=== PATIENT | male | born 2000 | race Caucasian/White ===

== ENCOUNTER 2019-12-31 21:39 | Inpatient (IN) | payer MEDICAID, SELFPAY ==
[2019-12-31 21:40] VITALS: BP 144/89; PULSE 91; RESP 18; TEMP 36.7; O2SAT 98; BMI 25.9
--- NOTE | 2019-12-31 21:44 | XR_ITS ---
WS: [id number] Left ankle, 3 views, 12/31/2019 Clinical Data: portable, sprained Comparison: None. Findings: No fractures or dislocations are seen. The ankle mortise is normal. The talus and calcaneus are unrem arkable. There is soft tissue swelling over the lateral malleolus. XR/XR ankle LT min 3V* [id number] Impression: 1. Soft tissue swelling over lateral malleolus. 2. Negative for fracture or dislocation.
--- NOTE | 2019-12-31 21:57 | W.ED.PSYCH ---
Documented by User: Madide Lewis MD 01/01/20 10:49 HPI - Psych General: Chief Complaint: Psychiatric Symptoms Stated Complaint: 96 hour hold, ankle inj Time Seen by Provider: 12/31/19 21:40 History of Present Illness: HPI Narrative: This patient is a 19-year-old male who presents with police today. He has been living at the [facility] for the past 2 weeks. He has a diagnosis of autism, ODD, posttraumatic stress disorder. He got upset tonight and made physical and verbal threats against the staff and the other residents. He then eloped from the home and the police were contacted. The police found him walking and the patient says he is trying to get back to [place]. The patient made statements to the police that if he saw anyone from [facility] he would kill them. He is very clear that he does not want to go back there. I talked to the staff member from [facility] and they are in agreement that it is not an appropriate place for him at this time. The patient was brought in by ambulance and his complaint to me is left ankle pain. He said it blew up while he was walking. Onset (ago): unknown Associated psychiatric symptoms: homicidal ideation Associated symptoms: Reports other (Aggressive behavior) Review of Systems General: Reports: ROS unobtainable due to mental status Physical Exam Narrative: EXAM NARRATIVE: Awake, alert, continuing to insist that he will get his way. Const: GENERAL APPEARANCE: disheveled Chest: COMMONS NORMALS: normal inspection of the chest Resp: COMMON NORMALS: normal respiratory effort and No use of accessory muscles Cardio: COMMON NORMALS: regular rate RATE: regular rate Extremity: GENERAL: Yes normal exam except as noted LEFT LOWER EXTREMITY: Yes ankle joint (Tenderness and swelling along the lateral malleolus, no tenderness of the fibular head) MDM - Psych Lab Data: Labs: Lab Results 12/31/19 12/31/19 12/31/19 Range/Units 22:04 22:04 22:22 WBC 8.9 (4.5-13.0) 10^3/ uL RBC 5.12 (4.1-5.3) 10^6/u L Hgb 14.7 (11.7-16.6) g/dL Hct 44.2 (42.0-52.0) % MCV 86.3 (80-94) fL MCH 28.7 (28.0-34.0) pg MCHC 33.3 (30.0-36.0) g/dL RDW 12.0 L (12.1-15.1) % Plt Count 220 (130-400) 10^3/c mm MPV 11.9 H (7.4-10.4) fL Neut % (Auto) 73.0 % Lymph % (Auto) 18.8 % [place] % (Auto) 7.0 % Eos % (Auto) 0.3 % Baso % (Auto) 0.3 % Neut # (Auto) 6.52 (1.8-8.0) 10^3/u L Lymph # (Auto) 1.7 (1.5-6.5) 10^3/u L [place] # (Auto) 0.6 (0.2-0.9) 10^3/u L Eos # (Auto) 0.0 (0.0-0.8) 10^3/u L Baso # (Auto) 0.0 (0.0-0.1) 10^3/u L Nucleated RBC % (a uto) 0 % Nucleated RBCs # 0.0 /100WBC Sodium (136-145) mmol/L Potassium (3.5-5.1) mmol/L Chloride (98-107) mmol/L Carbon Dioxide (22-29) mmol/L Anion Gap (5-19) BUN (6-20) mg/dL Creatinine (0.7-1.2) mg/dL GFR Calculation (90-130) mL/min Glucose (65-115) mg/dL Calculated Osmolal ity (285-295) mOsm/k g Calcium (8.5-10.5) mg/dL Total Bilirubin (0.15-1.2) mg/dL AST (0-40) U/L ALT (0-41) U/L Alkaline Phosphata se (40-130) IU/L Creatine Kinase (39-308) U/L Total Protein (6.6-8.7) g/dL Albumin (3.5-5.2) g/dL Globulin (1.3-4.6) g/dL TSH (0.27-4.20) uIU/ mL Free T4 (0.82-1.77) ng/d L Urine Color Yellow (Yellow) Urine Appearance Clear (CLEAR) Urine pH 5 (5-7) Ur Specific Gravit y 1.015 (1.005-1.030) Urine Protein Neg (Negative) Urine Glucose (UA) Norm (Normal) Urine Ketones Negative (Negative) Urine Blood Neg (Negative) Urine Nitrate Negative (Negative) Urine Bilirubin Neg (Negative) Urine Urobilinogen Norm (Negative) mg/dL Ur Leukocyte Cathy ase Negative (Negative) Salicylates (3-10) mg/dL Urine Opiates Scre en Negative (Negative) ng/mL Acetaminophen (10-30) ug/mL Ur Barbiturates Sc reen Negative (Negative) ng/mL Ur Phencyclidine S crn Negative (Negative) ng/mL Ur Amphetamines Sc reen Negative (Negative) ng/mL U Benzodiazepines Scrn Negative (Negative) ng/mL Urine Cocaine Scre en Negative (Negative) ng/mL U Marijuana (THC) Screen Negative (Negative) ng/mL Ethyl Alcohol (0-10) mg/dL SARS-CoV-2 Ag (Rap id) (Negative) 12/31/19 12/31/19 01/01/20 Range/Units 22:22 22:22 02:07 WBC (4.5-13.0) 10^3/ uL RBC (4.1-5.3) 10^6/u L Hgb (11.7-16.6) g/dL Hct (42.0-52.0) % MCV (80-94) fL MCH (28.0-34.0) pg MCHC (30.0-36.0) g/dL RDW (12.1-15.1) % Plt Count (130-400) 10^3/c mm MPV (7.4-10.4) fL Neut % (Auto) % Lymph % (Auto) % [place] % (Auto) % Eos % (Auto) % Baso % (Auto) % Neut # (Auto) (1.8-8.0) 10^3/u L Lymph # (Auto) (1.5-6.5) 10^3/u L [place] # (Auto) (0.2-0.9) 10^3/u L Eos # (Auto) (0.0-0.8) 10^3/u L Baso # (Auto) (0.0-0.1) 10^3/u L Nucleated RBC % (a uto) % Nucleated RBCs # /100WBC Sodium 140 (136-145) mmol/L Potassium 4.0 (3.5-5.1) mmol/L Chloride 103 (98-107) mmol/L Carbon Dioxide 25 (22-29) mmol/L Anion Gap 16.0 (5-19) BUN 14 (6-20) mg/dL Creatinine 0.9 (0.7-1.2) mg/dL GFR Calculation 107.6 (90-130) mL/min Glucose 107 (65-115) mg/dL Calculated Osmolal ity 291 (285-295) mOsm/k g Calcium 9.6 (8.5-10.5) mg/dL Total Bilirubin 0.3 (0.15-1.2) mg/dL AST 32 (0-40) U/L ALT 59 H (0-41) U/L Alkaline Phosphata se 90 (40-130) IU/L Creatine Kinase 241 (39-308) U/L Total Protein 7.7 (6.6-8.7) g/dL Albumin 5.0 (3.5-5.2) g/dL Globulin 2.7 (1.3-4.6) g/dL TSH 1.74 (0.27-4.20) uIU/ mL Free T4 1.35 (0.82-1.77) ng/d L Urine Color (Yellow) Urine Appearance (CLEAR) Urine pH (5-7) Ur Specific Gravit y (1.005-1.030) Urine Protein (Negative) Urine Glucose (UA) (Normal) Urine Ketones (Negative) Urine Blood (Negative) Urine Nitrate (Negative) Urine Bilirubin (Negative) Urine Urobilinogen (Negative) mg/dL Ur Leukocyte Cathy ase (Negative) Salicylates < 0.3 L (3-10) mg/dL Urine Opiates Scre en (Negative) ng/mL Acetaminophen < 5.0 L (10-30) ug/mL Ur Barbiturates Sc reen (Negative) ng/mL Ur Phencyclidine S crn (Negative) ng/mL Ur Amphetamines Sc reen (Negative) ng/mL U Benzodiazepines Scrn (Negative) ng/mL Urine Cocaine Scre en (Negative) ng/mL U Marijuana (THC) Screen (Negative) ng/mL Ethyl Alcohol < 10 (0-10) mg/dL SARS-CoV-2 Ag (Rap id) Negative (Negative) Discharge Plan Discharge Patient Disposition: Admitted As Inpatient Admit Provider: Jarod Martinez Clinical Impression: Homicidal ideation Condition: Stable Referrals: Nhung Martinez FNP [Primary Care Provider] - Coding Level of Care Code ED Forest Products Teacher for Chg Fwd Exam Detailed Documented by User: Darshana Ruby MD 01/01/20 05:38 HPI - Psych General: Chief Complaint: Psychiatric Symptoms Stated Complaint: 96 hour hold, ankle inj Time Seen by Provider: 12/31/19 21:40 MDM - Psych MDM Narrative: Medical decision making narrative: Patient presents here with homicidal ideations. Patient is medically cleared and was placed under 96-hour hold. I take patient over from Dr. Lewis and I spoke to Dr. Martinez and will admit here. Patient has been well acting here and stable. Lab Data: Labs: Lab Results 12/31/19 12/31/19 12/31/19 Range/Units 22:04 22:04 22:22 WBC 8.9 (4.5-13.0) 10^3/ uL RBC 5.12 (4.1-5.3) 10^6/u L Hgb 14.7 (11.7-16.6) g/dL Hct 44.2 (42.0-52.0) % MCV 86.3 (80-94) fL MCH 28.7 (28.0-34.0) pg MCHC 33.3 (30.0-36.0) g/dL RDW 12.0 L (12.1-15.1) % Plt Count 220 (130-400) 10^3/c mm MPV 11.9 H (7.4-10.4) fL Neut % (Auto) 73.0 % Lymph % (Auto) 18.8 % [place] % (Auto) 7.0 % Eos % (Auto) 0.3 % Baso % (Auto) 0.3 % Neut # (Auto) 6.52 (1.8-8.0) 10^3/u L Lymph # (Auto) 1.7 (1.5-6.5) 10^3/u L [place] # (Auto) 0.6 (0.2-0.9) 10^3/u L Eos # (Auto) 0.0 (0.0-0.8) 10^3/u L Baso # (Auto) 0.0 (0.0-0.1) 10^3/u L Nucleated RBC % (a uto) 0 % Nucleated RBCs # 0.0 /100WBC Sodium (136-145) mmol/L Potassium (3.5-5.1) mmol/L Chloride (98-107) mmol/L Carbon Dioxide (22-29) mmol/L Anion Gap (5-19) BUN (6-20) mg/dL Creatinine (0.7-1.2) mg/dL GFR Calculation (90-130) mL/min Glucose (65-115) mg/dL Calculated Osmolal ity (285-295) mOsm/k g Calcium (8.5-10.5) mg/dL Total Bilirubin (0.15-1.2) mg/dL AST (0-40) U/L ALT (0-41) U/L Alkaline Phosphata se (40-130) IU/L Creatine Kinase (39-308) U/L Total Protein (6.6-8.7) g/dL Albumin (3.5-5.2) g/dL Globulin (1.3-4.6) g/dL TSH (0.27-4.20) uIU/ mL Free T4 (0.82-1.77) ng/d L Urine Color Yellow (Yellow) Urine Appearance Clear (CLEAR) Urine pH 5 (5-7) Ur Specific Gravit y 1.015 (1.005-1.030) Urine Protein Neg (Negative) Urine Glucose (UA) Norm (Normal) Urine Ketones Negative (Negative) Urine Blood Neg (Negative) Urine Nitrate Negative (Negative) Urine Bilirubin Neg (Negative) Urine Urobilinogen Norm (Negative) mg/dL Ur Leukocyte Cathy ase Negative (Negative) Salicylates (3-10) mg/dL Urine Opiates Scre en Negative (Negative) ng/mL Acetaminophen (10-30) ug/mL Ur Barbiturates Sc reen Negative (Negative) ng/mL Ur Phencyclidine S crn Negative (Negative) ng/mL Ur Amphetamines Sc reen Negative (Negative) ng/mL U Benzodiazepines Scrn Negative (Negative) ng/mL Urine Cocaine Scre en Negative (Negative) ng/mL U Marijuana (THC) Screen Negative (Negative) ng/mL Ethyl Alcohol (0-10) mg/dL SARS-CoV-2 Ag (Rap id) (Negative) 12/31/19 12/31/19 01/01/20 Range/Units 22:22 22:22 02:07 WBC (4.5-13.0) 10^3/ uL RBC (4.1-5.3) 10^6/u L Hgb (11.7-16.6) g/dL Hct (42.0-52.0) % MCV (80-94) fL MCH (28.0-34.0) pg MCHC (30.0-36.0) g/dL RDW (12.1-15.1) % Plt Count (130-400) 10^3/c mm MPV (7.4-10.4) fL Neut % (Auto) % Lymph % (Auto) % [place] % (Auto) % Eos % (Auto) % Baso % (Auto) % Neut # (Auto) (1.8-8.0) 10^3/u L Lymph # (Auto) (1.5-6.5) 10^3/u L [place] # (Auto) (0.2-0.9) 10^3/u L Eos # (Auto) (0.0-0.8) 10^3/u L Baso # (Auto) (0.0-0.1) 10^3/u L Nucleated RBC % (a uto) % Nucleated RBCs # /100WBC Sodium 140 (136-145) mmol/L Potassium 4.0 (3.5-5.1) mmol/L Chloride 103 (98-107) mmol/L Carbon Dioxide 25 (22-29) mmol/L Anion Gap 16.0 (5-19) BUN 14 (6-20) mg/dL Creatinine 0.9 (0.7-1.2) mg/dL GFR Calculation 107.6 (90-130) mL/min Glucose 107 (65-115) mg/dL Calculated Osmolal ity 291 (285-295) mOsm/k g Calcium 9.6 (8.5-10.5) mg/dL Total Bilirubin 0.3 (0.15-1.2) mg/dL AST 32 (0-40) U/L ALT 59 H (0-41) U/L Alkaline Phosphata se 90 (40-130) IU/L Creatine Kinase 241 (39-308) U/L Total Protein 7.7 (6.6-8.7) g/dL Albumin 5.0 (3.5-5.2) g/dL Globulin 2.7 (1.3-4.6) g/dL TSH 1.74 (0.27-4.20) uIU/ mL Free T4 1.35 (0.82-1.77) ng/d L Urine Color (Yellow) Urine Appearance (CLEAR) Urine pH (5-7) Ur Specific Gravit y (1.005-1.030) Urine Protein (Negative) Urine Glucose (UA) (Normal) Urine Ketones (Negative) Urine Blood (Negative) Urine Nitrate (Negative) Urine Bilirubin (Negative) Urine Urobilinogen (Negative) mg/dL Ur Leukocyte Cathy ase (Negative) Salicylates < 0.3 L (3-10) mg/dL Urine Opiates Scre en (Negative) ng/mL Acetaminophen < 5.0 L (10-30) ug/mL Ur Barbiturates Sc reen (Negative) ng/mL Ur Phencyclidine S crn (Negative) ng/mL Ur Amphetamines Sc reen (Negative) ng/mL U Benzodiazepines Scrn (Negative) ng/mL Urine Cocaine Scre en (Negative) ng/mL U Marijuana (THC) Screen (Negative) ng/mL Ethyl Alcohol < 10 (0-10) mg/dL SARS-CoV-2 Ag (Rap id) Negative (Negative) EKG Data^: EKG 1: Attestation: I personally reviewed and interpreted this EKG as follows: EKG interpretation date: 01/01/20 EKG interpretation time: 02:10 Interpretation: nsr hr [address] or t wave abnormalities early repol noted qrs 99 qtc 385 Discharge Plan Discharge Patient Disposition: Admitted As Inpatient Admit Provider: Jarod Martinez Clinical Impression: Homicidal ideation Condition: Stable Referrals: Nhung Martinez FNP [Primary Care Provider] - Coding Level of Care Code ED Forest Products Teacher for Chg Fwd Exam Detailed
[2019-12-31 22:26] LABS: Basophils % 0.3 %; Eosinophils % 0.3 %; Hematocrit 44.2 % (42.0-52.0); Hemoglobin 14.7 g/dL (11.7-16.6); Lymphocytes # 1.7 10^3/uL (1.5-6.5); Lymphocytes % 18.8 %; Mean Corpuscular HGB Conc 33.3 g/dL (30.0-36.0); Mean Corpuscular Hemoglobin 28.7 pg (28.0-34.0); Mean Corpuscular Volume 86.3 fL (80-94); Mean Platelet Volume 11.9 fL (7.4-10.4); Monocytes # 0.6 10^3/uL (0.2-0.9); Neutrophils # 6.52 10^3/uL (1.8-8.0); Nucleated Red Blood Cells % 0 %; Platelet Count 220 10^3/cmm (130-400); Red Blood Count 5.12 10^6/uL (4.1-5.3); White Blood Count 8.9 10^3/uL (4.5-13.0)
[2019-12-31 22:32] LABS: Amphetamines Screen Urine Negative (Negative); Barbiturates Screen Urine Negative (Negative); Benzodiazepines Screen Urine Negative (Negative); Cocaine Screen Urine Negative (Negative); Opiate Screen Urine Negative (Negative); PCP Screen Urine Negative (Negative); THC Screen Urine Negative (Negative)
[2019-12-31 22:50] LABS: Alanine Aminotransferase 59 U/L (0-41); Alkaline Phosphatase 90 IU/L (40-130); Aspartate Amino Transferase 32 U/L (0-40); Blood Urea Nitrogen 14 mg/dL (6-20); Calcium 9.6 mg/dL (8.5-10.5); Carbon Dioxide 25 mmol/L (22-29); Chloride 103 mmol/L (98-107); Globulin 2.7 g/dL (1.3-4.6); Glomerular Filtration Rate 107.6 mL/min (90-130); Glucose 107 mg/dL (65-115); Osmolality Calculated 291 mOsm/kg (285-295); Sodium 140 mmol/L (136-145); Total Bilirubin 0.3 mg/dL (0.15-1.2); Total Protein 7.7 g/dL (6.6-8.7)
[2019-12-31 22:52] LABS: Acetaminophen < 5.0 ug/mL (10-30); Alcohol Level < 10 mg/dL (0-10); Salicylate < 0.3 mg/dL (3-10)
[2020-01-01] VITALS (12 sets, daily range): BP systolic 120–146; BP diastolic 81–97; PULSE 54–94; RESP 14–20; TEMP 36.3–36.7; O2SAT 95–100
--- NOTE | 2020-01-01 01:43 | ECG_ITS ---
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 Measurements Intervals Commerce Rate: 65 P: 42 OH: 196 QRS: 42 QRSD: 99 T: 15 QT: 374 QTc: 390 Interpretive Statements SINUS RHYTHM WITH SINUS ARRHYTHMIA ST ELEVATION, PROBABLY EARLY REPOLARIZATION [ST ELEVATION WITH NORMALLY INFLECTED T WAVE] No previous ECG available for comparison Electronically Signed On 01-01-2020 9:32:58 CDT by Dillan Castañeda M.D. [email or web address] Roomwalth[facility] hospitalPower Surge Electricjoint township [facility].[employer]/store/[id number]
[2020-01-01 02:50] LABS: SARS Covid-2 Antigen Negative (Negative)
--- NOTE | 2020-01-01 03:11 | PC.SOCIAL ---
Patient brought in by police and placed on a 96 hour hold. Spoke to his caregiver Ishmael ([phone]). Patient has only been at their [facility] home for 2 weeks. Prior to that he was at [facility] in [place]. He lives at a home with 2 other men, one is another consumer and his brother who has no services. He has a guardian, Nadia Samayoa [phone]. According to Ishmael and the affidavits he got upset and was threatening both staff and the room mates. He then eloped and was found walking by police. Ishmael said he does not know what the administrators at [facility] will want to do as far as allowing him back but he does not feel comfortable with him returning because he threatened other consumers. Contacts: Guardian Nadia Yao [phone] Wes Vanessa-Corral Boss at [facility] [phone] Em Rowe-Blueprint Processor at [facility] [phone] Caregiver Ihsmael [phone] Attempting to transfer from ED. So far the only facilities willing to consider are [facility] and [facility]. The [employer] computer system is on downtime so it will be 0530 before it can be referred and bed availability is known.
--- NOTE | 2020-01-01 04:35 | PC.SOCIAL ---
All [facility] units declined due to not having the staff for autism. [facility] waiting for UA, T4, TSH, and CK labs to be faxed to [phone]
[2020-01-01 04:37] LABS: Creatine Phosphokinase 241 U/L (39-308); Free T4 Free Thyroxine 1.35 ng/dL (0.82-1.77); Thyroid Stimulating Hormone 1.74 uIU/mL (0.27-4.20)
[2020-01-01 04:49] LABS: Add Urine Microscopic? NO
--- NOTE | 2020-01-01 04:55 | PM.NHP ---
Providers/Chief Complaint Admitting Physician: Jarod Martinez MD Primary Care Provider: JEET Avila Chief Complaint: 96 hour hold, ankle inj HPI NPU History of Present Illness Carlos Chan is a 19 year old male who presented to the emergency room with the following report: Chief Complaint: Psychiatric Symptoms Stated Complaint: 96 hour hold, ankle inj Time Seen by Provider: 12/31/19 21:40 History of Present Illness: HPI Narrative: This patient is a 19-year-old male who presents with police today. He has been living at the [facility] for the past 2 weeks. He has a diagnosis of autism, ODD, posttraumatic stress disorder. He got upset tonight and made physical and verbal threats against the staff and the other residents. He then eloped from the home and the police were contacted. The police found him walking and the patient says he is trying to get back to [place]. The patient made statements to the police that if he saw anyone from [facility] he would kill them. He is very clear that he does not want to go back there. I talked to the staff member from [facility] and they are in agreement that it is not an appropriate place for him at this time. The patient was brought in by ambulance and his complaint to me is left ankle pain. He said it blew up while he was walking. Onset (ago): unknown Associated psychiatric symptoms: homicidal ideation Associated symptoms: Reports other (Aggressive behavior). A second consult was requested for safety for discharge. Carlos presented to the evaluation reporting that he was upset with the staff and his new roommates. And that he left and was walking/today walking down the road and the police picked him up. 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 He reports that about 2 weeks ago he came to the [facility] as his new living arrangement. Without real clarity he expressed not liking it there and not wanting to go back there. He reports that he was open to the idea of going to the [facility] but that he was really upset about something that he could not really articulate. According to him he got in an argument and he may have thrown things are gotten aggressive. According to the staff member that was with him he threatened staff and his roommate and was physical but is not clear how much was observed and how much was being reported by roommates. At the time [facility] was saying they would not take him back at the very least for the night. Psychiatric history: He reports multiple inpatient hospitalizations. He reports that he takes medication but was unclear as to what they were. Substance abuse history: He denies cigarettes, alcohol, marijuana or any other illicit drug use. He is never been to rehab and never had a DUI. Family history: He reports he does not really know about his biological family. Developmental history: He is unsure about his and delivery. He believes that he was vague slow learning to walk about. He reports that he did have special education classes. Psychosocial history: He is fairly unclear of his history. Though he does report that he was taken away from his parents/biological parents. He is not sure why. He reports that he was adopted and that some of his adopted relatives live in [place] which is where he was planning on going to. He reports that his childhood has been tough. He did not report any motor physical use. He reports that he graduated from high school. He denies additional training, endorses that he is attracted to girls. He has never been , he has no children, has never been in the , and denied any specific tenriism belief system. He denies significant work history. He currently lives in [facility] with at least one roommate and might be to somewhat confusing. Legal history: Denied. Medical history: None reported. Meds NPU Home Medications Medication Instructions Recorded Confirmed Last Taken Type Fiber-Caps (psyllium husk) 625 mg PO DAILY 01/01/20 01/01/20 Unknown History benztropine 1 mg PO DAILY 01/01/20 01/01/20 Unknown History cetirizine 10 mg PO DAILY 01/01/20 01/01/20 Unknown History desmopressin 0.2 mg PO DAILY 01/01/20 01/01/20 Unknown History fluticasone furoate 50 mcg INHALATION DAILY PRN 01/01/20 01/01/20 Unknown History guanfacine 1 mg PO TID 01/01/20 01/01/20 Unknown History hydrocortisone 2.5 % TOPICAL BID PRN 01/01/20 01/02/20 Unknown History ibuprofen 400 mg PO TID PRN 01/01/20 01/01/20 Unknown History loratadine 10 mg PO DAILY 01/01/20 01/01/20 Unknown History methylphenidate 36 mg PO DAILY 01/01/20 01/01/20 Unknown History multivitamin 1 tab PO DAILY 01/01/20 01/01/20 Unknown History olanzapine 10 mg PO DAILY 01/01/20 01/01/20 Unknown History Allergies Allergy/AdvReac Type Severity Reaction Status Date / Time divalproex sodium Allergy ADR-Vomitin Verified 12/31/19 21:45 [From Depakote] g Mental Status Exam MSE Comments: This is a well-nourished well-developed white male with limited grooming and eye contact. With slightly dysmorphic. Cooperative with exam in mild distress. Speech was limited but normal rate and volume. With limited prosody. Mood described as all right, affect odd. Thought process linear. Thought content: Patient denied suicidal or homicidal ideations, there were no delusions reported or noted, he denied any auditory or visual hallucinations. Attention and concentration were limited and memory was unreliable at times, but none were formally tested. He is alert and oriented x3. Insight and judgment are impaired, intellectual ability is impaired, impulse control is impaired. Vitals/I&O/Wt Last Vital Signs Temp 97.3 F L 01/01/20 22:00 Pulse 54 L 01/01/20 22:00 Resp 16 01/01/20 22:00 BP 141/93 01/01/20 22:00 Pulse Ox 98 01/01/20 22:00 Weight last 48 hrs Weight 75.296 kg Data NPU : 12/31/19 22:22 12/31/19 22:22 A&P Assessment and plan (1) Homicidal ideation: Status: Acute (2) Adjustment disorder with mixed disturbance of emotions and conduct: Status: Acute (3) Intellectual disability: Status: Acute (4) Impulse control disorder: Status: Acute (5) Autism spectrum: Status: Acute Additional A&P Information This is a 19-year-old white male who recently moved to [facility] after years in a different facility with possibly a different facility in between moving to [facility] who presents with some issues of adjustment and reports of homicidality but significant intellectual disability. 1. Continue current medication. 2. Admit to neuropsychiatric unit for assessment for safety. 3. Identified with [facility] their obligation to accept patient back for definitive housing arrangements if they are going to identify him as failure to adjust. Involuntary Hold Information 96 Hour Hold: 96 Hour Involuntary Admission: Yes 96 Hour Hold Ending Date: 01/06/20 96 Hour Hold Ending Time: 21:54 Attestations NPU Medical Necessity Statement*: Inpatient hospitalization is medically appropriate for safety and the clinically appropriate intervention at this time. We will evaluate medications and make changes if indicated. Likely length of stay 1 to 3 days. Coding Level of Care Code Acute [facility] for [facility] Fwd Diagnoses Homicidal ideation R45.850 Adjustment disorder with mixed disturbance of emotions and conduct F43.25 Intellectual disability F79 Impulse control disorder F63.9 Autism spectrum F84.0
[2020-01-01 05:07] LABS: Bilirubin Urine Neg (Negative); Blood Urine Neg (Negative); Glucose Urine UA Norm (Normal); Ketones Urine Negative (Negative); Leukocyte Esterase Urine Negative (Negative); Nitrate Urine Negative (Negative); Protein Urine Neg (Negative); Specific Gravity, Urine 1.015 (1.005-1.030); Urine Appearance Clear (CLEAR); Urine Color Yellow (Yellow); Urobilinogen Urine Norm (Negative); pH Urine 5 (5-7)
--- NOTE | 2020-01-01 05:29 | PC.SOCIAL ---
Dianna with [facility] faxed all requested labs. She is to call their doctor and will call the ED back.
--- NOTE | 2020-01-01 07:25 | PC.NURSE ---
pt's presales engineer from [facility] (Callie) contacted ER this morning and was updated on pt's plan of care.
--- NOTE | 2020-01-01 09:27 | PC.NURSE ---
pt woke up today and given breakfast. pt updated on plan of care. pt has no needs at this time
--- NOTE | 2020-01-01 09:47 | PC.SOCIAL ---
Called Mihaela Stearns they are suppose to get back with me.
[2020-01-02 06:00] VITALS: BP 141/93; PULSE 54; RESP 16; TEMP 36.3; O2SAT 98
[2020-01-02 06:15] VITALS: BP 131/86; PULSE 68; RESP 15; TEMP 36.7; O2SAT 95
[2020-01-02] MEDS: guanfacine 1 mg Tablet PO ×2 (08:20→14:46)
[2020-01-02] MEDS: benztropine 1 mg Tablet PO (08:20)
[2020-01-02] MEDS: OLANZapine 10 mg TABLET PO (08:20)
[2020-01-02] MEDS: multivitamin therapeutic Tablet 1 TAB PO (08:20)
[2020-01-02] MEDS: cetirizine 10 mg Tablet PO (08:20)
[2020-01-02] MEDS: loratadine 10 mg Tablet PO (08:20)
--- NOTE | 2020-01-02 11:30 | PM.NDC ---
Diagnoses at Discharge Discharge Diagnosis (1) Homicidal ideation: Status: Acute (2) Adjustment disorder with mixed disturbance of emotions and conduct: Status: Acute (3) Intellectual disability: Status: Acute (4) Impulse control disorder: Status: Acute (5) Autism spectrum: Status: Acute Reason for Visit Reason for Visit: 96 hour hold, ankle inj Brief History: History of Present Illness Carlos Chan is a 19 year old male who presented to the emergency room with the following report: Chief Complaint: Psychiatric Symptoms Stated Complaint: 96 hour hold, ankle inj Time Seen by Provider: 12/31/19 21:40 History of Present Illness: HPI Narrative: This patient is a 19-year-old male who presents with police today. He has been living at the [facility] for the past 2 weeks. He has a diagnosis of autism, ODD, posttraumatic stress disorder. He got upset tonight and made physical and verbal threats against the staff and the other residents. He then eloped from the home and the police were contacted. The police found him walking and the patient says he is trying to get back to [place]. The patient made statements to the police that if he saw anyone from [facility] he would kill them. He is very clear that he does not want to go back there. I talked to the staff member from [facility] and they are in agreement that it is not an appropriate place for him at this time. The patient was brought in by ambulance and his complaint to me is left ankle pain. He said it blew up while he was walking. Onset (ago): unknown Associated psychiatric symptoms: homicidal ideation Associated symptoms: Reports other (Aggressive behavior). A second consult was requested for safety for discharge. Carlos presented to the evaluation reporting that he was upset with the staff and his new roommates. And that he left and was walking/today walking down the road and the police picked him up. 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 He reports that about 2 weeks ago he came to the [facility] as his new living arrangement. Without real clarity he expressed not liking it there and not wanting to go back there. He reports that he was open to the idea of going to the [facility] but that he was really upset about something that he could not really articulate. According to him he got in an argument and he may have thrown things are gotten aggressive. According to the staff member that was with him he threatened staff and his roommate and was physical but is not clear how much was observed and how much was being reported by roommates. At the time Trevin was saying they would not take him back at the very least for the night. Psychiatric history: He reports multiple inpatient hospitalizations. He reports that he takes medication but was unclear as to what they were. Substance abuse history: He denies cigarettes, alcohol, marijuana or any other illicit drug use. He is never been to rehab and never had a DUI. Family history: He reports he does not really know about his biological family. Developmental history: He is unsure about his and delivery. He believes that he was vague slow learning to walk about. He reports that he did have special education classes. Psychosocial history: He is fairly unclear of his history. Though he does report that he was taken away from his parents/biological parents. He is not sure why. He reports that he was adopted and that some of his adopted relatives live in [place] which is where he was planning on going to. He reports that his childhood has been tough. He did not report any motor physical use. He reports that he graduated from high school. He denies additional training, endorses that he is attracted to girls. He has never been , he has no children, has never been in the , and denied any specific adventism belief system. He denies significant work history. He currently lives in [facility] house with at least one roommate and might be to somewhat confusing. Legal history: Denied. Medical history: None reported. Involuntary Hold Information 96 Hour Hold: 96 Hour Involuntary Admission: Yes 96 Hour Hold Ending Date: 01/06/20 96 Hour Hold Ending Time: 21:54 Mental Status Exam MSE Comments: This is a well-nourished well-developed white male with limited grooming and eye contact. With slightly dysmorphic facies. Cooperative with exam in no acute distress. Speech was limited but normal rate and volume. With limited prosody. Mood described as good, affect odd. Thought process linear. Thought content: Patient denied suicidal or homicidal ideations, there were no delusions reported or noted, he denied any auditory or visual hallucinations. Attention and concentration were fair and memory was mostly reliable, but none were formally tested. He is alert and oriented x3. Insight and judgment are improving, intellectual ability is impaired, impulse control is impaired, but improving. Discharge Data Data Completed and Pending: Completed Studies During Hospitalization Category Date Time Status XR ankle LT min 3 V* [id number] Stat Exams 12/31/19 21:44 Completed Vitals: Last Vital Signs Temp 97.5 F L 01/02/20 14:00 Pulse 61 01/02/20 14:00 Resp 18 01/02/20 14:00 BP 123/79 01/02/20 14:00 Pulse Ox 96 01/02/20 14:00 Discharge Plan Discharge Patient Disposition: Home Condition: Stable Prescriptions: Continued multivitamin Tablet 1 tab PO DAILY RF: 0 desmopressin 0.2 mg Tablet 0.2 mg PO DAILY RF: 0 olanzapine 10 mg Tablet 10 mg PO DAILY RF: 0 ibuprofen 400 mg Tablet 400 mg PO TID PRN (Reason: Fever Or Pain) RF: 0 guanfacine 1 mg Tablet 1 mg PO TID RF: 0 loratadine 10 mg Tablet 10 mg PO DAILY RF: 0 fluticasone furoate 50 mcg/actuation Blister With Device 50 mcg INHALATION DAILY PRN (Reason: Allergic Symptoms) RF: 0 Fiber-Caps (psyllium husk) 625 mg PO DAILY RF: 0 benztropine 1 mg PO DAILY RF: 0 cetirizine 10 mg PO DAILY RF: 0 hydrocortisone cream 2.5 % topical BID PRN (Reason: Allergic Symptoms) RF: 0 methylphenidate 36 mg PO DAILY RF: 0 Discharge Orders: Discharge Order (Routine); Ordered 01/02/20 Ordered By: Jarod Martinez Referrals: [facility] [Outside] - 1-3 days (As soon as it is possible, contact [facility] about getting appointment scheduled for follow-up. Guardian is aware of the need for her signature to process referral. ) Nhung Martinez FNP [Primary Care Provider] - Discharge Diet: Regular Discharge Activity: Resume usual activity Discharge Date/Time: 01/02/20 16:23 Discharge Attestations NPU Time Spent in Discharge Care*: less than 30 min Specific Discharge Activities: Specific discharge activities: educating patient, discussing with comp field case manager/social workers/dc planners, documenting/other paperwork and evaluating patient/reviewing data Coding Level of Care Code Acute Pollution Control Technician for Chg Fwd Diagnoses Homicidal ideation R45.850 Adjustment disorder with mixed disturbance of emotions and conduct F43.25 Intellectual disability F79 Impulse control disorder F63.9 Autism spectrum F84.0
[2020-01-02 11:35] VITALS: BP 131/86; PULSE 68; RESP 15; TEMP 36.7; O2SAT 95
[2020-01-02 14:00] VITALS: BP 123/79; PULSE 61; RESP 18; TEMP 36.4; O2SAT 96
== END 2020-01-02 16:23 | disposition home or self-care (01) | DRG 882 ==
LOC: ER 01-01 05:35 → NP 01-01 06:01
PROVIDERS: Admitting Provider Psychiatry & Neurology Psychiatry; Emergency Provider Emergency Medicine; PCP Nurse Practitioner Family; Visit Provider Psychiatry & Neurology Psychiatry
DX: F43.25 Adjustment disorder with mixed disturbance of emotions and conduct (principal); F79 Unspecified intellectual disabilities; F84.0 Autistic disorder; F63.9 Impulse disorder, unspecified; R45.850 Homicidal ideations
CPT/HCPCS: 12345; 73610; 80053; 80306; 80307; 81003; 82550; 84439; 84443; 85025; 87426; 93005; 99284

== ENCOUNTER 2020-02-01 22:30 | Inpatient (IN) | payer MEDICAID, SELFPAY ==
[2020-02-01 22:38] VITALS: BP 137/100; PULSE 93; RESP 18; TEMP 36.7; O2SAT 98; BMI 25.8
[2020-02-01 22:55] LABS: Basophils % 0.2 %; Eosinophils % 0.1 %; Hemoglobin 14.9 g/dL (11.7-16.6); Lymphocytes # 1.4 10^3/uL (1.5-6.5); Lymphocytes % 13.1 %; Mean Corpuscular HGB Conc 32.4 g/dL (30.0-36.0); Mean Corpuscular Hemoglobin 28.6 pg (28.0-34.0); Mean Corpuscular Volume 88.3 fL (80-94); Monocytes # 0.6 10^3/uL (0.2-0.9); Monocytes % 5.4 %; Neutrophils # 8.64 10^3/uL (1.8-8.0); Nucleated Red Blood Cells % 0 %; Platelet Count 235 10^3/cmm (130-400); Red Blood Count 5.21 10^6/uL (4.1-5.3); Red Cell Distribution Width 12.5 % (12.1-15.1); White Blood Count 10.7 10^3/uL (4.5-13.0)
[2020-02-01 22:59] LABS: Add Urine Microscopic? NO
[2020-02-01 23:02] LABS: Bilirubin Urine Neg (Negative); Blood Urine Neg (Negative); Glucose Urine UA Norm (Normal); Ketones Urine Negative (Negative); Leukocyte Esterase Urine Negative (Negative); Nitrate Urine Negative (Negative); Protein Urine Neg (Negative); Specific Gravity, Urine 1.025 (1.005-1.030); Urine Appearance Clear (CLEAR); Urine Color Yellow (Yellow); Urobilinogen Urine Norm (Negative); pH Urine 6 (5-7)
[2020-02-01 23:11] LABS: Alanine Aminotransferase 32 U/L (0-41); Albumin Level 5.1 g/dL (3.5-5.2); Alkaline Phosphatase 101 IU/L (40-130); Anion Gap 13.9 (5-19); Aspartate Amino Transferase 34 U/L (0-40); Blood Urea Nitrogen 16 mg/dL (6-20); Calcium 9.9 mg/dL (8.5-10.5); Carbon Dioxide 30 mmol/L (22-29); Chloride 104 mmol/L (98-107); Globulin 2.7 g/dL (1.3-4.6); Glomerular Filtration Rate 85.3 mL/min (90-130); Glucose 91 mg/dL (65-115); Osmolality Calculated 299 mOsm/kg (285-295); Potassium 3.9 mmol/L (3.5-5.1); Sodium 144 mmol/L (136-145); Total Bilirubin 0.4 mg/dL (0.15-1.2); Total Protein 7.8 g/dL (6.6-8.7)
[2020-02-01 23:12] LABS: Amphetamines Screen Urine Negative (Negative); Barbiturates Screen Urine Negative (Negative); Benzodiazepines Screen Urine Negative (Negative); Cocaine Screen Urine Negative (Negative); Opiate Screen Urine Negative (Negative); PCP Screen Urine Negative (Negative); THC Screen Urine Negative (Negative)
[2020-02-01 23:26] LABS: Acetaminophen < 5.0 ug/mL (10-30); Alcohol Level < 10 mg/dL (0-10); Salicylate < 0.3 mg/dL (3-10)
[2020-02-02 00:10] VITALS: BP 136/93; PULSE 103; RESP 18; O2SAT 97
--- NOTE | 2020-02-02 00:11 | PC.NURSE ---
Called report to LORNA Frank in NPU
[2020-02-02 00:17] VITALS: BP 136/92; PULSE 115; RESP 18; TEMP 36.6; O2SAT 98
[2020-02-02] MEDS: OLANZapine 5 mg ODT PO (01:30)
[2020-02-02] MEDS: hyDROXYzine 25 mg Capsule 50 MG PO ×2 (01:30→21:04)
[2020-02-02] MEDS: trazodone 50 mg Tablet PO ×2 (01:30→21:04)
--- NOTE | 2020-02-02 01:56 | ED_ITS ---
HPI - Psych General: Chief Complaint: Psychiatric Symptoms Stated Complaint: HI Time Seen by Provider: 02/01/20 22:41 History of Present Illness: HPI Narrative: 19-year-old male who presents after having made homicidal threatening statements to his roommate and staff in the correction setting. Affidavits were written by staff member and police, who witnessed some of these statements as well. He has not been ill recently he says. He had a prior episode of this a month or so ago. The staff is worried about safety of the other tenants. MD complaint: other Onset (ago): hour(s) Duration: constant History of same: Yes Relieving factors: none Exacerbating factors: none Associated psychiatric symptoms: depression and homicidal ideation Associated symptoms: Reports homicidal ideation Review of Systems Const: Denies: fever(s) or chills ENMT: Denies: odynophagia or sinus pain Card: Denies: chest pain, palpitations or irregular heart rhythm Resp: Denies: dyspnea, productive cough, non-productive cough or wheezing GI: Denies: abdominal pain, nausea or vomiting : Denies: difficulty urinating or hematuria Musc: Denies: neck pain or back pain Skin/Breast: Denies: rash Neuro: Denies: headache(s), dizziness or vertigo Psych: Reports: homicidal ideation PFSH ED PFSH: Social History Current gender identity: Male Physical Exam Const: GENERAL APPEARANCE: well developed ORIENTATION/CONSCIOUSNESS: Yes oriented to person, Yes oriented to place and Yes oriented to time HENMT: COMMON NORMALS: normocephalic, external ears normal and Normal external nose present HEAD & SCALP: normocephalic; no scalp tenderness FACE & SINUS: normal facial exam NOSE: Normal external nose present and No nasal discharge present EXTERNAL EAR: Yes external ears normal THROAT: posterior oropharynx normal; no peritonsillar mass Eye: COMMON NORMALS: Equal, round and reactive pupils present, EOMs intact bilaterally and conjunctivae normal EYELID: eyelids normal CONJUNCTIVA: Yes conjunctivae normal PUPIL: Yes Equal, round and reactive pupils present Neck/C-Spine: GENERAL: No tracheal deviation Chest: COMMONS NORMALS: normal inspection of the chest CHEST: No tenderness Resp: COMMON NORMALS: clear to auscultation bilaterally EFFORT & INSPECTION: No tachypneic, No respiratory distress, No retractions, No uses accessory muscles and No tracheal deviation AUSCULTATION: clear to auscultation bilaterally, no rhonchi, no wheezes and lung sounds not diminished Cardio: COMMON NORMALS: regular rate and regular rhythm RATE: regular rate RHYTHM: regular rhythm HEART SOUNDS: no murmurs PERIPHERAL PULSES: radial pulses present GI: INSPECTION: No abdominal distension AUSCULTATION: No Hyperactive bowel sounds present and No Hypoactive bowel sounds present PALPATION: No Guarding due to palpation present (GI) and No Rigid due to palpation PERCUSSION: no dullness to percussion and no tympanic to percussion Neuro: SENSORIUM/ORIENTATION: Yes oriented to person, Yes oriented to place and Yes oriented to time Psych: APPEARANCE: Yes grossly normal ACTIVITY/MOTOR BEHAVIOR: Yes appropriate eye contact SPEECH: Yes excessive MOOD & AFFECT: Yes expansive affect THOUGHT PROCESS: disorganized THOUGHT CONTENT: Yes Homicidality present ATTENTION/CONCENTRATION: Yes attention grossly intact and Yes concentration grossly intact INSIGHT: Limited insight present (Psych) JUDGEMENT: Limited judgement present (Psych) Skin: COMMON NORMALS: no rashes or lesions noted GENERAL SKIN EXAM: no rashes or lesions noted MDM - Psych MDM Narrative: Medical decision making narrative: Labs are stable. He is medically cleared. Psychiatry consulted from the ER, and agrees to admit. Lab Data: Labs: Lab Results 02/01/20 02/01/20 02/01/20 Range/Units 22:45 22:45 22:54 WBC 10.7 (4.5-13.0) 10^3/ uL RBC 5.21 (4.1-5.3) 10^6/u L Hgb 14.9 (11.7-16.6) g/dL Hct 46.0 (42.0-52.0) % MCV 88.3 (80-94) fL MCH 28.6 (28.0-34.0) pg MCHC 32.4 (30.0-36.0) g/dL RDW 12.5 (12.1-15.1) % Plt Count 235 (130-400) 10^3/c mm MPV 12.0 H (7.4-10.4) fL Neut % (Auto) 81.0 % Lymph % (Auto) 13.1 % Calloway % (Auto) 5.4 % Eos % (Auto) 0.1 % Baso % (Auto) 0.2 % Neut # (Auto) 8.64 H (1.8-8.0) 10^3/u L Lymph # (Auto) 1.4 L (1.5-6.5) 10^3/u L Calloway # (Auto) 0.6 (0.2-0.9) 10^3/u L Eos # (Auto) 0.0 (0.0-0.8) 10^3/u L Baso # (Auto) 0.0 (0.0-0.1) 10^3/u L Nucleated RBC % (a uto) 0 % Nucleated RBCs # 0.0 /100WBC Sodium 144 (136-145) mmol/L Potassium 3.9 (3.5-5.1) mmol/L Chloride 104 (98-107) mmol/L Carbon Dioxide 30 H (22-29) mmol/L Anion Gap 13.9 (5-19) BUN 16 (6-20) mg/dL Creatinine 1.1 (0.7-1.2) mg/dL GFR Calculation 85.3 L (90-130) mL/min Glucose 91 (65-115) mg/dL Calculated Osmolal ity 299 H (285-295) mOsm/k g Calcium 9.9 (8.5-10.5) mg/dL Total Bilirubin 0.4 (0.15-1.2) mg/dL AST 34 (0-40) U/L ALT 32 (0-41) U/L Alkaline Phosphata se 101 (40-130) IU/L Total Protein 7.8 (6.6-8.7) g/dL Albumin 5.1 (3.5-5.2) g/dL Globulin 2.7 (1.3-4.6) g/dL Urine Color Yellow (Yellow) Urine Appearance Clear (CLEAR) Urine pH 6 (5-7) Ur Specific Gravit y 1.025 (1.005-1.030) Urine Protein Neg (Negative) Urine Glucose (UA) Norm (Normal) Urine Ketones Negative (Negative) Urine Blood Neg (Negative) Urine Nitrate Negative (Negative) Urine Bilirubin Neg (Negative) Urine Urobilinogen Norm (Negative) mg/dL Ur Leukocyte Cathy ase Negative (Negative) Salicylates < 0.3 L (3-10) mg/dL Urine Opiates Scre en (Negative) ng/mL Acetaminophen < 5.0 L (10-30) ug/mL Ur Barbiturates Sc reen (Negative) ng/mL Ur Phencyclidine S crn (Negative) ng/mL Ur Amphetamines Sc reen (Negative) ng/mL U Benzodiazepines Scrn (Negative) ng/mL Urine Cocaine Scre en (Negative) ng/mL U Marijuana (THC) Screen (Negative) ng/mL Ethyl Alcohol < 10 (0-10) mg/dL 02/01/20 Range/Units 22:54 WBC (4.5-13.0) 10^3/ uL RBC (4.1-5.3) 10^6/u L Hgb (11.7-16.6) g/dL Hct (42.0-52.0) % MCV (80-94) fL MCH (28.0-34.0) pg MCHC (30.0-36.0) g/dL RDW (12.1-15.1) % Plt Count (130-400) 10^3/c mm MPV (7.4-10.4) fL Neut % (Auto) % Lymph % (Auto) % Calloway % (Auto) % Eos % (Auto) % Baso % (Auto) % Neut # (Auto) (1.8-8.0) 10^3/u L Lymph # (Auto) (1.5-6.5) 10^3/u L Calloway # (Auto) (0.2-0.9) 10^3/u L Eos # (Auto) (0.0-0.8) 10^3/u L Baso # (Auto) (0.0-0.1) 10^3/u L Nucleated RBC % (a uto) % Nucleated RBCs # /100WBC Sodium (136-145) mmol/L Potassium (3.5-5.1) mmol/L Chloride (98-107) mmol/L Carbon Dioxide (22-29) mmol/L Anion Gap (5-19) BUN (6-20) mg/dL Creatinine (0.7-1.2) mg/dL GFR Calculation (90-130) mL/min Glucose (65-115) mg/dL Calculated Osmolal ity (285-295) mOsm/k g Calcium (8.5-10.5) mg/dL Total Bilirubin (0.15-1.2) mg/dL AST (0-40) U/L ALT (0-41) U/L Alkaline Phosphata se (40-130) IU/L Total Protein (6.6-8.7) g/dL Albumin (3.5-5.2) g/dL Globulin (1.3-4.6) g/dL Urine Color (Yellow) Urine Appearance (CLEAR) Urine pH (5-7) Ur Specific Gravit y (1.005-1.030) Urine Protein (Negative) Urine Glucose (UA) (Normal) Urine Ketones (Negative) Urine Blood (Negative) Urine Nitrate (Negative) Urine Bilirubin (Negative) Urine Urobilinogen (Negative) mg/dL Ur Leukocyte Cathy ase (Negative) Salicylates (3-10) mg/dL Urine Opiates Scre en Negative (Negative) ng/mL Acetaminophen (10-30) ug/mL Ur Barbiturates Sc reen Negative (Negative) ng/mL Ur Phencyclidine S crn Negative (Negative) ng/mL Ur Amphetamines Sc reen Negative (Negative) ng/mL U Benzodiazepines Scrn Negative (Negative) ng/mL Urine Cocaine Scre en Negative (Negative) ng/mL U Marijuana (THC) Screen Negative (Negative) ng/mL Ethyl Alcohol (0-10) mg/dL Discharge Plan Discharge Patient Disposition: Admitted As Inpatient Admit Provider: Jarod Martinez Clinical Impression: Homicidal ideation Condition: Stable Coding Level of Care Code ED Retort Feeder [employer] Bone for Saad Fwd Exam Comprehensive
[2020-02-02 06:00] VITALS: BP 119/80; PULSE 58; RESP 15; TEMP 36.9; O2SAT 97
[2020-02-02] MEDS: calcium polycarbophil 625 mg Tablet PO (08:58)
[2020-02-02] MEDS: benztropine 1 mg Tablet PO (08:58)
[2020-02-02] MEDS: loratadine 10 mg Tablet PO (08:58)
[2020-02-02] MEDS: guanfacine 1 mg Tablet PO ×3 (08:58→21:04)
[2020-02-02] MEDS: multivitamin therapeutic Tablet 1 TAB PO (08:59)
[2020-02-02] MEDS: OLANZapine 10 mg TABLET PO (08:59)
[2020-02-02] MEDS: cetirizine 10 mg Tablet PO (08:59)
--- NOTE | 2020-02-02 12:07 | P.HP_ITS ---
Providers/Chief Complaint Admitting Physician: Jarod Martinez MD Primary Care Provider: JEET Avila Chief Complaint: HI HPI NPU History of Present Illness Carlos Chan is a 19 year old male who presented to the emergency department with the following report: Chief Complaint: Psychiatric Symptoms Stated Complaint: HI Time Seen by Provider: 02/01/20 22:41 History of Present Illness: HPI Narrative: 19-year-old male who presents after having made homicidal threatening statements to his roommate and staff in the long-term setting. Affidavits were written by staff member and police, who witnessed some of these statements as well. He has not been ill recently he says. He had a prior episode of this a month or so ago. The staff is worried about safety of the other tenants. complaint: other Onset (ago): hour(s) Duration: constant History of same: Yes Relieving factors: none Exacerbating factors: none Associated psychiatric symptoms: depression and homicidal ideation Associated symptoms: Reports homicidal ideation. He was admitted to the neuropsychiatric unit for definitive treatment of those issues. 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 He now is on the unit functioning fine interacting with other clie nts with no problem. And asking about returning home with 0 insight into his behavior consistent with his intellectual disability. He had no new information to add other than there was a public and that he was frustrated and reacted in the wrong way. He denied any ongoing decompensation, any perils at his facility that would make going back dangerous or inappropriate. He denied any substantive changes since his last presentation 30 days ago. And denied any problems that would require medication interventions. The treatment team is collaborating with his guardian and his living facility for appropriate intervention. Per his 01/01/2020 [facility] [place] inpatient eval: History of Present Illness Carlos Chan is a 19 year old male who presented to the emergency room with the following report: Chief Complaint: Psychiatric Symptoms Stated Complaint: 96 hour hold, ankle inj Time Seen by Provider: 12/31/19 21:40 History of Present Illness: HPI Narrative: This patient is a 19-year-old male who presents with police today. He has been living at the [facility] for the past 2 weeks. He has a diagnosis of autism, ODD, posttraumatic stress disorder. He got upset tonight and made physical and verbal threats against the staff and the other residents. He then eloped from the home and the police were contacted. The police found him walking and the patient says he is trying to get back to [place]. The patient made statements to the police that if he saw anyone from [facility] he would kill them. He is very clear that he does not want to go back there. I talked to the staff member from [facility] and they are in agreement that it is not an appropriate place for him at this time. The patient was brought in by ambulance and his complaint to me is left ankle pain. He said it blew up while he was walking. Onset (ago): unknown Associated psychiatric symptoms: homicidal ideation Associated symptoms: Reports other (Aggressive behavior). A second consult was requested for safety for discharge. Carlos presented to the evaluation reporting that he was upset with the staff and his new roommates. And that he left and was walking/today walking down the road and the police picked him up. 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 He reports that about 2 weeks ago he came to the [facility] as his new living arrangement. Without real clarity he expressed not liking it there and not wanting to go back there. He reports that he was open to the idea of going to the [facility] but that he was really upset about something that he could not really articulate. According to him he got in an argument and he may have thrown things are gotten aggressive. According to the staff member that was with him he threatened staff and his roommate and was physical but is not clear how much was observed and how much was being reported by roommates. At the time [facility] was saying they would not take him back at the very least for the night. Psychiatric history: He reports multiple inpatient hospitalizations. He reports that he takes medication but was unclear as to what they were. Substance abuse history: He denies cigarettes, alcohol, marijuana or any other illicit drug use. He is never been to rehab and never had a DUI. Family history: He reports he does not really know about his biological family. Developmental history: He is unsure about his and delivery. He believes that he was vague slow learning to walk about. He reports that he did have special education classes. Psychosocial history: He is fairly unclear of his history. Though he does report that he was taken a way from his parents/biological parents. He is not sure why. He reports that he was adopted and that some of his adopted relatives live in [place] which is where he was planning on going to. He reports that his childhood has been tough. He did not report any motor physical use. He reports that he graduated from high school. He denies additional training, endorses that he is attracted to girls. He has never been , he has no children, has never been in the , and denied any specific pentecostal belief system. He denies significant work history. He currently lives in [facility] with at least one roommate and might be to somewhat confusing. Legal history: Denied. Medical history: None reported. Meds NPU Home Medications Medication Instructions Recorded Confirmed Last Taken Type Fiber-Caps (psyllium husk) 625 mg PO DAILY 01/01/20 02/02/20 02/01/20 09:00 History benztropine 1 mg PO DAILY 01/01/20 02/02/20 02/01/20 09:00 History cetirizine 10 mg PO DAILY 01/01/20 02/02/20 02/01/20 09:00 History desmopressin 0.2 mg PO DAILY 01/01/20 02/02/20 02/01/20 09:00 History fluticasone furoate [Arnuity 50 mcg INHALATION DAILY PRN 01/01/20 02/02/20 02/01/20 09:00 History Ellipta] guanfacine 1 mg PO TID 01/01/20 02/02/20 02/01/20 09:00 History hydrocortisone 2.5 % TOPICAL BID PRN 01/01/20 02/02/20 02/01/20 09:00 History ibuprofen 400 mg PO TID PRN 01/01/20 02/02/20 02/01/20 09:00 History loratadine 10 mg PO DAILY 01/01/20 02/02/20 02/01/20 09:00 History methylphenidate 36 mg PO DAILY 01/01/20 02/02/20 02/01/20 09:00 History multivitamin 1 tab PO DAILY 01/01/20 02/02/20 02/01/20 09:00 History olanzapine 10 mg PO DAILY 01/01/20 02/02/20 02/01/20 09:00 History Allergies Allergy/AdvReac Type Severity Reaction Status Date / Time poison sumac extract Allergy Mild Unknown Verified 01/28/20 14:23 divalproex sodium Allergy ADR-Vomitin Verified 01/28/20 14:20 [From Depakote] g PFSH NPU PFSH: Social History Current gender identity: Male Mental Status Exam MSE Comments: This is a well-nourished well-developed white male with limited grooming and eye contact. With slightly dysmorphic facies. Cooperative with exam in no acute distress. Speech was limited but normal rate and volume and childlike, with limited prosody. Mood described as pretty good, affect odd. Thought process linear. Thought content: Patient denied suicidal or homicidal ideations, there were no delusions reported or noted, he denied any auditory or visual hallucinations. Attention and concentration were limited and memory was unreliable at times, but none were formally tested. He is alert and oriented x3. Insight and judgment are impaired, intellectual ability is impaired, impulse control is impaired. Vitals/I&O/Wt Last Vital Signs Temp 98.4 F 02/02/20 06:00 Pulse 58 L 02/02/20 06:00 Resp 15 02/02/20 06:00 BP 119/80 02/02/20 06:00 Pulse Ox 97 02/02/20 06:00 Weight last 48 hrs Weight 74.843 kg Data NPU : 02/01/20 22:45 02/01/20 22:45 A&P Assessment and plan (1) Homicidal ideation: Status: Acute (2) Autism spectrum: Status: Acute (3) Impulse control disorder: Status: Acute (4) Intellectual disability: Status: Acute (5) Adjustment disorder with mixed disturbance of emotions and conduct: Status: Acute Additional A&P Information This is a 19-year-old white male with a long history of intellectual disability and social awkwardness with limited impulse control who presents about 5 [address] his stay at [facility] with occasional difficulties with getting along with his housemates. 1. Continue current medication. 2. Continue every 15 minute checks for safety. 3. Encourage individual, group and milieu therapy. 4. Given his circumstances, intellectual disability and intellectual issues are stable realities we will work with treatment team and [facility] for rapid reintegration home. Involuntary Hold Information 96 Hour Hold: 96 Hour Involuntary Admission: Yes 96 Hour Hold Ending Date: 02/05/20 96 Hour Hold Ending Time: 23:43 Attestations NPU Medical Necessity Statement*: Inpatient hospitalization is medically appropriate for safety and the clinically appropriate intervention at this time. We will evaluate medications and make changes if indicated. 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
[2020-02-02 14:00] VITALS: BP 118/73; PULSE 56; RESP 18; TEMP 36.8; O2SAT 97
[2020-02-02 20:31] VITALS: BP 111/68; PULSE 54; RESP 14; TEMP 36.6; O2SAT 97
--- NOTE | 2020-02-03 02:19 | PC.NURSE ---
Pt has been in his bed since the beginning of exerciser horse. He did cooperate with initial assessment and is smiling as he talks. He does say that he wants to be free of state. He wants to take care of his own needs and wants.
[2020-02-03 06:00] VITALS: BP 128/72; PULSE 55; RESP 16; TEMP 36.9; O2SAT 97
[2020-02-03] MEDS: guanfacine 1 mg Tablet PO ×3 (08:22→20:47)
[2020-02-03] MEDS: multivitamin therapeutic Tablet 1 TAB PO (08:22)
[2020-02-03] MEDS: calcium polycarbophil 625 mg Tablet PO (08:22)
[2020-02-03] MEDS: benztropine 1 mg Tablet PO (08:22)
[2020-02-03] MEDS: loratadine 10 mg Tablet PO (08:22)
[2020-02-03] MEDS: cetirizine 10 mg Tablet PO (08:22)
[2020-02-03] MEDS: OLANZapine 10 mg TABLET PO (08:22)
[2020-02-03 14:00] VITALS: BP 169/79; PULSE 101; RESP 18; TEMP 36.7; O2SAT 92
--- NOTE | 2020-02-03 18:40 | PM.NPN ---
Subjective NPU Subjective: Interval history: Carlos presents today continuing to present as he always has. Some issues were raised about delusional content with Carlos. He and I had a fairly lengthy conversation about the content of reported delusions. Specifically issues surrounding him reporting having a girlfriend and a child and having contact or interactions with them or aspiring to get back to them. As had been suspected by this senior writer these delusions actually represents wishful thinking and ideation and having a reality that is very different than the current one he is stuck with. Mental Status Exam MSE Comments: This is a well-nourished well-developed white male with limited grooming and eye contact. With slightly dysmorphic facies. Cooperative with exam in no acute distress. Speech was limited but normal rate and volume and childlike, with limited prosody. Mood described as pretty good, affect odd. Thought process linear. Thought content: Patient denied suicidal or homicidal ideations, there were no delusions reported or noted, he denied any auditory or visual hallucinations. Attention and concentration were limited and memory was unreliable at times, but none were formally tested. He is alert and oriented x3. Insight and judgment are impaired, intellectual ability is impaired, impulse control is impaired. Vitals/I&O/Wt Last Vital Signs Temp 97.6 F 02/03/20 20:46 Pulse 47 L 02/03/20 20:46 Resp 17 02/03/20 20:46 BP 105/69 02/03/20 20:46 Pulse Ox 96 02/03/20 20:46 Data NPU : 02/01/20 22:45 02/01/20 22:45 A&P Additional A&P Information (1) Homicidal ideation: (2) Autism spectrum: (3) Impulse control disorder: (4) Intellectual disability: (5) Adjustment disorder with mixed disturbance of emotions and conduct: Additional A&P Information This is a 19-year-old white male with a long history of intellectual disability and social awkwardness with limited impulse control who presents about 5 [address] his stay at [facility] with occasional difficulties with getting along with his housemates. 1. Continue current medication. 2. Continue every 15 minute checks for safety. 3. Encourage individual, group and milieu therapy. 4. Evaluated concerns for delusional content without merit. Plan for discharge tomorrow. Involuntary Hold Information 96 Hour Hold: 96 Hour Involuntary Admission: Yes 96 Hour Hold Ending Date: 02/05/20 96 Hour Hold Ending Time: 23:43 Attestations NPU Medical Necessity Statement*: Inpatient hospitalization is medically appropriate for safety and the clinically appropriate intervention at this time. We will evaluate medications and make changes if indicated. Plan for discharge tomorrow. 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
[2020-02-03 20:46] VITALS: BP 105/69; PULSE 47; RESP 17; TEMP 36.4; O2SAT 96
[2020-02-03] MEDS: hyDROXYzine 25 mg Capsule 50 MG PO (20:47)
[2020-02-03] MEDS: trazodone 50 mg Tablet PO (20:47)
[2020-02-04 06:00] VITALS: BP 103/64; PULSE 50; RESP 16; TEMP 36.6; O2SAT 97
[2020-02-04] MEDS: multivitamin therapeutic Tablet 1 TAB PO (08:12)
[2020-02-04] MEDS: OLANZapine 10 mg TABLET PO (08:12)
[2020-02-04] MEDS: loratadine 10 mg Tablet PO (08:12)
[2020-02-04] MEDS: guanfacine 1 mg Tablet PO (08:12)
[2020-02-04] MEDS: cetirizine 10 mg Tablet PO (08:12)
[2020-02-04] MEDS: calcium polycarbophil 625 mg Tablet PO (08:12)
[2020-02-04] MEDS: benztropine 1 mg Tablet PO (08:12)
[2020-02-04 11:20] VITALS: BP 103/64; PULSE 50; RESP 16; TEMP 36.6; O2SAT 97
--- NOTE | 2020-02-04 11:33 | PM.NDC ---
Diagnoses at Discharge Discharge Diagnosis (1) Homicidal ideation: Status: Resolved (2) Autism spectrum: Status: Acute (3) Impulse control disorder: Status: Acute (4) Intellectual disability: Status: Acute (5) Adjustment disorder with mixed disturbance of emotions and conduct: Status: Acute Reason for Visit Reason for Visit: HI Brief History: History of Present Illness Carlos Chan is a 19 year old male who presented to the emergency department with the following report: Chief Complaint: Psychiatric Symptoms Stated Complaint: HI Time Seen by Provider: 02/01/20 22:41 History of Present Illness: HPI Narrative: 19-year-old male who presents after having made homicidal threatening statements to his roommate and staff in the senior living setting. Affidavits were written by staff member and police, who witnessed some of these statements as well. He has not been ill recently he says. He had a prior episode of this a month or so ago. The staff is worried about safety of the other tenants. MD complaint: other Onset (ago): hour(s) Duration: constant History of same: Yes Relieving factors: none Exacerbating factors: none Associated psychiatric symptoms: depression and homicidal ideation Associated symptoms: Reports homicidal ideation. He was admitted to the neuropsychiatric unit for definitive treatment of those issues. 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 He now is on the unit functioning fine interacting with other clients with no problem. And asking about returning home with 0 insight into his behavior consistent with his intellectual disability. He had no new information to add other than there was a public and that he was frustrated and reacted in the wrong way. He denied any ongoing decompensation, any perils at his facility that would make going back dangerous or inappropriate. He denied any substantive changes since his last presentation 30 days ago. And denied any problems that would require medication interventions. The treatment team is collaborating with his guardian and his living facility for appropriate intervention. Per his 01/01/2020 [facility]: History of Present Illness Carlos Chan is a 19 year old male who presented to the emergency room with the following report: Chief Complaint: Psychiatric Symptoms Stated Complaint: 96 hour hold, ankle inj Time Seen by Provider: 12/31/19 21:40 History of Present Illness: HPI Narrative: This patient is a 19-year-old male who presents with police today. He has been living at the [facility] for the past 2 weeks. He has a diagnosis of autism, ODD, posttraumatic stress disorder. He got upset tonight and made physical and verbal threats against the staff and the other residents. He then eloped from the home and the police were contacted. The police found him walking and the patient says he is trying to get back to [place]. The patient made statements to the police that if he saw anyone from [facility] he would kill them. He is very clear that he does not want to go back there. I talked to the staff member from [facility] and they are in agreement that it is not an appropriate place for him at this time. The patient was brought in by ambulance and his complaint to me is left ankle pain. He said it blew up while he was walking. Onset (ago): unknown Associated psychiatric symptoms: homicidal ideation Associated symptoms: Reports other (Aggressive behavior). A second consult was requested for safety for discharge. Carlos presented to the evaluation reporting that he was upset with the staff and his new roommates. And that he left and was walking/today walking down the road and the police picked him up. 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 He reports that about 2 weeks ago he came to the [facility] as his new living arrangement. Without real clarity he expressed not liking it there and not wanting to go back there. He reports that he was open to the idea of going to the [facility] but that he was really upset about something that he could not really articulate. According to him he got in an argument and he may have thrown things are gotten aggressive. According to the staff member that was with him he threatened staff and his roommate and was physical but is not clear how much was observed and how much was being reported by roommates. At the time [facility] was saying they would not take him back at the very least for the night. Psychiatric history: He reports multiple inpatient hospitalizations. He reports that he takes medication but was unclear as to what they were. Substance abuse history: He denies cigarettes, alcohol, marijuana or any other illicit drug use. He is never been to rehab and never had a DUI. Family history: He reports he does not really know about his biological family. Developmental history: He is unsure about his and delivery. He believes that he was vague slow learning to walk about. He reports that he did have special education classes. Psychosocial history: He is fairly unclear of his history. Though he does report that he was taken away from his parents/biological parents. He is not sure why. He reports that he was adopted and that some of his adopted relatives live in [place] which is where he was planning on going to. He reports that his childhood has been tough. He did not report any motor physical use. He reports that he graduated from high school. He denies additional training, endorses that he is attracted to girls. He has never been , he has no children, has never been in the , and denied any specific anabaptist belief system. He denies significant work history. He currently lives in [facility] with at least one roommate and might be to somewhat confusing. Legal history: Denied. Medical history: None reported. Hospital Course Hospital Course Carlos presented to the emergency department with homicidal thoughts towards men. He had been seen about a month prior with very similar situation. He is adjusting to a new facility and new staff and roommates. He was admitted to the neuropsychiatric unit for definitive treatment of those issues. On the unit he quickly acclimated to the individual, group and milieu therapies provided. He was somewhat isolative but staff reported concerns about delusional thinking. Investigation into those issues unveiled not delusions but wishful thinking. His talk about having a girlfriend and a child somewhere else represented the fantasy life he would like to live versus the controlled life he is living. He had no issues or outbursts on the unit. There were no medication changes made.He was nothing more than stable during his entire stay. During the hospitalization he had routine laboratory studies which were within normal limits with a few outliers. Additionally he had a general medical evaluation which was within normal limits and revealed no new acute processes. Discharge summary: At the time of discharge, he was absent lethality or psychosis. His mood and anxiety and impulse control were well managed. He endorsed a plan to follow-up with the recommendations of the inpatient team for aftercare. He was evaluated and deemed absent credible lethality and had achieved a maximal benefit from inpatient hospitalization, so he was discharged. Involuntary Hold Information 96 Hour Hold: 96 Hour Involuntary Admission: Yes 96 Hour Hold Ending Date: 02/05/20 96 Hour Hold Ending Time: 23:43 Mental Status Exam MSE Comments: This is a well-nourished well-developed white male with limited grooming and eye contact. With slightly dysmorphic facies. Cooperative with exam in no acute distress. Speech was limited but normal rate and volume and childlike, with limited prosody. Mood described as good, affect odd. Thought process linear. Thought content: Patient denied suicidal or homicidal ideations, there were no delusions reported or noted, he denied any auditory or visual hallucinations. Attention and concentration were limited and memory was unreliable at times, but none were formally tested. He is alert and oriented x3. Insight and judgment are impaired, intellectual ability is impaired, impulse control is impaired. Discharge Data Vitals: Last Vital Signs Temp 97.8 F 02/04/20 11:20 Pulse 50 L 02/04/20 11:20 Resp 16 02/04/20 11:20 BP 103/64 02/04/20 11:20 Pulse Ox 97 02/04/20 11:20 Discharge Plan Discharge Patient Disposition: Home Condition: Stable Prescriptions: Continued multivitamin Tablet 1 tab PO DAILY RF: 0 desmopressin 0.2 mg Tablet 0.2 mg PO DAILY RF: 0 olanzapine 10 mg Tablet 10 mg PO DAILY RF: 0 ibuprofen 400 mg Tablet 400 mg PO TID PRN (Reason: Fever Or Pain) RF: 0 guanfacine 1 mg Tablet 1 mg PO TID RF: 0 loratadine 10 mg Tablet 10 mg PO DAILY RF: 0 Arnuity Ellipta 50 mcg/actuation Blister With Device 50 mcg INHALATION DAILY PRN (Reason: Allergic Symptoms) RF: 0 Fiber-Caps (psyllium husk) capsule 625 mg PO DAILY RF: 0 benztropine capsule 1 mg PO DAILY RF: 0 cetirizine capsule 10 mg PO DAILY RF: 0 hydrocortisone cream 2.5 % topical BID PRN (Reason: Allergic Symptoms) RF: 0 methylphenidate capsule 36 mg PO DAILY RF: 0 Discharge Orders: Discharge Order (Routine); Ordered 02/04/20 Ordered By: Jarod Martinez Referrals: [facility] [Outside] - 02/26/20 2:00 pm (Dr. Connor at [facility] February 26 2020 at 2:00 PM. 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
== END 2020-02-04 12:33 | disposition home or self-care (01) | DRG 882 ==
LOC: ER 23:05 → NP 02-02 02:01
PROVIDERS: Admitting Provider Psychiatry & Neurology Psychiatry; Emergency Provider Emergency Medicine; PCP Nurse Practitioner Family; Visit Provider Psychiatry & Neurology Psychiatry
DX: F43.25 Adjustment disorder with mixed disturbance of emotions and conduct (principal); R45.850 Homicidal ideations; F79 Unspecified intellectual disabilities; F63.9 Impulse disorder, unspecified; F84.0 Autistic disorder
CPT/HCPCS: 12345; 80053; 80306; 80307; 81003; 85025; 99284

== ENCOUNTER → 2020-02-26 13:35 | Outpatient (BNVA) | payer MEDICAID, SELFPAY | PROVIDERS: PCP Nurse Practitioner Family; Visit Provider Psychiatry & Neurology Psychiatry | DX: F84.0 Autistic disorder (principal); F63.9 Impulse disorder, unspecified; F79 Unspecified intellectual disabilities; F43.25 Adjustment disorder with mixed disturbance of emotions and conduct | CPT/HCPCS: 99204 ==

== ENCOUNTER → 2020-05-20 08:19 | Outpatient (BNVA) | payer MEDICAID, SELFPAY | PROVIDERS: PCP Nurse Practitioner Family; Visit Provider Psychiatry & Neurology Psychiatry | DX: F43.25 Adjustment disorder with mixed disturbance of emotions and conduct (principal); F84.0 Autistic disorder; F63.9 Impulse disorder, unspecified; F79 Unspecified intellectual disabilities | CPT/HCPCS: 99212 ==

== ENCOUNTER → 2020-08-19 10:54 | Outpatient (BNVA) | payer MEDICAID, SELFPAY | PROVIDERS: PCP Nurse Practitioner Family; Visit Provider Psychiatry & Neurology Psychiatry | DX: F43.25 Adjustment disorder with mixed disturbance of emotions and conduct (principal); F84.0 Autistic disorder; F63.9 Impulse disorder, unspecified; F79 Unspecified intellectual disabilities | CPT/HCPCS: 99214 ==

== ENCOUNTER → 2020-11-23 09:56 | Outpatient (BNVA) | payer OTHER, MEDICAID, SELFPAY | PROVIDERS: PCP Nurse Practitioner Family; Visit Provider Psychiatry & Neurology Psychiatry | DX: F84.0 Autistic disorder (principal); F63.9 Impulse disorder, unspecified; F79 Unspecified intellectual disabilities; F43.25 Adjustment disorder with mixed disturbance of emotions and conduct | CPT/HCPCS: 99214 ==

== ENCOUNTER → 2021-02-15 08:14 | Outpatient (BNVA) | payer OTHER, SELFPAY | PROVIDERS: PCP Nurse Practitioner Family; Visit Provider Psychiatry & Neurology Psychiatry | DX: F84.0 Autistic disorder (principal); F43.25 Adjustment disorder with mixed disturbance of emotions and conduct | CPT/HCPCS: 99213 ==

== ENCOUNTER → 2021-04-12 07:46 | Outpatient (BNVA) | payer OTHER, SELFPAY | PROVIDERS: PCP Nurse Practitioner Family; Visit Provider Psychiatry & Neurology Psychiatry | DX: F63.9 Impulse disorder, unspecified (principal); F79 Unspecified intellectual disabilities; F84.0 Autistic disorder; F43.25 Adjustment disorder with mixed disturbance of emotions and conduct | CPT/HCPCS: 99213 ==

== ENCOUNTER → 2021-06-14 14:44 | Outpatient (BNVA) | payer OTHER, SELFPAY | PROVIDERS: PCP Nurse Practitioner Family; Visit Provider Psychiatry & Neurology Psychiatry | DX: F84.0 Autistic disorder (principal); F43.25 Adjustment disorder with mixed disturbance of emotions and conduct; F63.9 Impulse disorder, unspecified; F79 Unspecified intellectual disabilities | CPT/HCPCS: 99214 ==

== ENCOUNTER → 2021-06-21 08:17 | Outpatient (BNVA) | payer OTHER, SELFPAY | PROVIDERS: PCP Nurse Practitioner Family; Referring Provider Nurse Practitioner Family; Visit Provider Podiatrist Foot & Ankle Surgery | DX: L60.0 Ingrowing nail (principal); M76.62 Achilles tendinitis, left leg | CPT/HCPCS: 73610; 99203; 99204 ==

== ENCOUNTER → 2021-07-12 07:57 | Outpatient (BNVA) | payer OTHER, MEDICAID, SELFPAY | PROVIDERS: PCP Nurse Practitioner Family; Visit Provider Psychiatry & Neurology Psychiatry | DX: F84.0 Autistic disorder (principal); F43.25 Adjustment disorder with mixed disturbance of emotions and conduct; F63.9 Impulse disorder, unspecified; F79 Unspecified intellectual disabilities; L60.0 Ingrowing nail; M76.60 Achilles tendinitis, unspecified leg | CPT/HCPCS: 11730; 99213 ==

== ENCOUNTER → 2021-08-04 12:52 | Outpatient (BNVA) | payer MEDICAID, SELFPAY | PROVIDERS: PCP Nurse Practitioner Family; Visit Provider Podiatrist Foot & Ankle Surgery | DX: Z98.890 Other specified postprocedural states (principal) | CPT/HCPCS: 99213 ==

== ENCOUNTER → 2022-10-05 08:44 | Outpatient (BNVA) | payer OTHER, SELFPAY | PROVIDERS: PCP Nurse Practitioner Family; Visit Provider Psychiatry & Neurology Psychiatry | DX: F63.9 Impulse disorder, unspecified (principal); F79 Unspecified intellectual disabilities; F84.0 Autistic disorder | CPT/HCPCS: 80053; 80061; 83036; 84443; 85025 ==

== ENCOUNTER 2023-08-02 14:08 | Emergency (ER) | payer MEDICAID, SELFPAY ==
[2023-08-02 14:12] VITALS: PULSE 66; RESP 16; TEMP 36.4; O2SAT 96
--- NOTE | 2023-08-02 14:45 | XR_ITS ---
WS: [id number] Right forearm, AP and lateral views, 08/02/2023 Clinical Data: possible fx Comparison: None. Findings: There is a fracture of the proximal third of the right radius and a fracture of the distal third of t he right ulna. There is displacement of the distal fracture fragments from their proximal shafts. The re is soft tissue swelling about the right forearm. XR/XR forearm RT 2V [id number] Impression: Fractures of the right radius and right ulna.
--- NOTE | 2023-08-02 15:20 | ED_ITS ---
HPI - Extremity Problem General: Chief complaint: Extremity Injury, Upper Stated complaint: Sent by Cl Franklin, right arm pain Time Seen by Provider: 08/02/23 15:20 Source: patient Mode of arrival: ambulatory History of Present Illness: 23-year-old male he lives in a group [place] has a guardian he has some intellectual disability. He landed on an outstretched right arm is complaining of right forearm pain and has an obvious deformity. He has a small abrasion to his head and did not get knocked unconscious has no other injuries. He is able to move the fingers without difficulty no numbness and tingling in the hand. No previous injury to the right forearm MD Complaint: extremity pain Onset (ago): minute(s) Location: right and upper extremity (Forearm) Quality: sharp Radiation: distal Relieving factors: immobilization Exacerbating factors: range of motion and palpation Associated symptoms: Deny chest pain, fever(s) or rash Review of Systems Const: Denies: fever(s) or chills Card: Denies: chest pain Resp: Denies: dyspnea GI: Denies: abdominal pain : Denies: dysuria, urinary frequency or urinary urgency Musc: Denies: neck pain or back pain Skin/Breast: Denies: rash PFSH ED PFSH: Medical History Psychiatric care Social History Smoking and tobacco/nicotine status: never used tobacco/nicotine Second hand smoke exposure: No Alcohol intake: never Substance/Drug Use: never Current gender identity: Male Physical Exam Const: GENERAL APPEARANCE: cooperative and comfortable ORIENTATION/CONSCIOUSNESS: Yes awake HENMT: COMMON NORMALS: normocephalic, atraumatic, hearing grossly normal bilaterally, external ears normal, EAC's normal, TM's normal bilaterally and Normal nasal mucous membranes and turbinates present HEAD & SCALP: normocephalic and atraumatic NOSE: Normal nasal mucous membranes and turbinates present EXTERNAL EAR: Yes external ears normal EXTERNAL AUDITORY CANAL: EAC's normal TYMPANIC MEMBRANE: TM's normal bilaterally Eye: COMMON NORMALS: Equal, round and reactive pupils present, EOMs intact bilaterally, conjunctivae normal and no scleral icterus CONJUNCTIVA: Yes conjunctivae normal PUPIL: Yes Equal, round and reactive pupils present Neck/C-Spine: COMMON NORMALS: full ROM, no lymphadenopathy, supple and no JVD Resp: COMMON NORMALS: normal respiratory effort, No retractions, No use of accessory muscles and clear to auscultation bilaterally AUSCULTATION: clear to auscultation bilaterally Cardio: COMMON NORMALS: no JVD, regular rate, regular rhythm and No murmurs present (Cardio) RATE: regular rate RHYTHM: regular rhythm GI: COMMON NORMALS: Soft to palpation and No hepatosplenomegaly present AUSCULTATION: Yes normoactive bowel sounds PALPATION: Yes Soft to palpation, No Tenderness to palpation present (GI), No Guarding due to palpation present (GI) and Yes No hepatosplenomegaly present Extremity: OTHER: Examination of the right forearm obvious deformity of the proximal portion of the forearm. Neurovascularly intact. Does not have pain disproportionate to exam. Reexamined after splint applied patient is neurovascularly intact. Skin: COMMON NORMALS: no rashes or lesions noted GENERAL SKIN EXAM: no rashes or lesions noted Procedures Orthopedic Splinting/Casting Injury #1: Side: right Upper Extremity Injury Location: forearm Upper Extremity Immobilizer: sling/shoulder immobilizer and sugar tong splint Course Vital Signs: Vital signs: Vital Signs Temperature 97.6 F 08/02/23 14:12 Pulse Rate 56 L 08/02/23 16:27 Respiratory Rate 16 08/02/23 14:12 Blood Pressure 159/85 08/02/23 16:27 Pulse Oximetry 97 08/02/23 16:27 Oxygen Delivery Me thod Room Air 08/02/23 15:44 MDM - Extremity (Nontraumatic) Medical Decision Making Radial ulnar fracture. No sign of compartment syndrome no significant pain with passive range of motion patient actually has a fairly impressive active range of motion we cautioned him against we are trying to split it. He has good pulses after the splint was placed good capillary refill. Will place him in his sling as well instructions given for no use of the right arm. Given pain medicines as a follow-up appointment tomorrow morning at [address] Menendez's office. Medical Records I reviewed the patient's medical records. Lab Data I reviewed the patient's lab results. Radiology Impressions Forearm X-Ray 08/02/23 14:45 Impression: Fractures of the right radius and right ulna. Humerus X-Ray 08/02/23 15:25 Impression: 1. Negative right arm and humerus. 2. Fracture of proximal third of right radius. Shoulder X-Ray 08/02/23 15:25 Impression: Negative right shoulder. All radiology interpretation(s) finalized by discharge Discharge Plan Discharge Patient Disposition: Home Clinical Impression: Fracture of radial shaft, with ulna, right, closed Condition: Stable Prescriptions: New hydrocodone-acetaminophen 5-325 mg tablet 1 tab PO Q6H PRN (Reason: pain) Qty: 15 0RF No Action fluticasone propionate [Children's Flonase Allergy Rlf] 50 mcg/actuation spray,suspension 1 spray intranasal DAILY Rx Instructions: administer into each nostril omeprazole 20 mg capsule,delayed release(DR/EC) 20 mg PO DAILY PRN cyclobenzaprine 5 mg tablet 5 mg PO TID PRN guanfacine 1 mg tablet 1 mg PO TID Qty: 90 2RF Hold Instructions: Doctor's Order Rx Instructions: SCHEDULED FOR 0800, 1600, 2000 desmopressin 0.2 mg tablet 0.2 mg PO .nightly Qty: 30 0RF olanzapine 5 mg tablet 5 mg PO .HS Qty: 30 2RF ibuprofen 400 mg Tablet 400 mg PO TID PRN (Reason: Fever Or Pain) Fiber-Caps (psyllium husk) capsule 625 mg PO DAILY cetirizine capsule 10 mg PO DAILY Discharge Orders: Discharge ED (Routine); Ordered 08/02/23 Ordered By: Aaron Garcia Referrals: Nhung Martinez FNP [Primary Care Provider] - Discharge Diet: Usual diet Discharge Activity: Limit activity as instructed Patient Instructions: Opioid Safety, Pain Management Activity Restrictions/Additional Instructions: Thank you for choosing [facility] for your healthcare needs today. Please realize this is an emergency room and that we are providing you with a medical screening exam and this may not be complete and all inclusive of all the testing and or work up that you may need to determine your ailment or severity of your illness. It is very important that you follow up as instructed or that you return to the Emergency Department should you have concerns or if your condition changes or worsens in any way. You were seen today for after a fall. You have a fracture of your right forearm. Recommend you do not use the right forearm until released by orthopedics. You should leave the splint and sling in place until you see orthopedics. You can use the pain medications given. If pain suddenly worsens or becomes unbearable return to the emergency room You have an appoint with Dr. Menendez in the orthopedics clinic of the medical office building tomorrow morning at 11 AM. You should not eat after midnight. Coding Level of Care Code ED Digital Media Associate for Saad Mitchell
--- NOTE | 2023-08-02 15:25 | XR_ITS ---
WS: [id number] Right shoulder, 3 views, 08/02/2023 Clinical Data: trauma Comparison: None. Findings: No fractures or dislocations are seen. The AC joint is normal. The adjacent right clavicle, right sca pula and ribs are normal. The soft tissues are unremarkable. XR/XR shoulder RT min 2V* [id number] Impression: Negative right shoulder.
--- NOTE | 2023-08-02 15:25 | XR_ITS ---
WS: [id number] Right arm and humerus, 2 views, AP and lateral views, 08/02/2023 Clinical Data: trauma Comparison: None. Findings: No humeral fractures or dislocations are seen. There is a fracture of the proximal third of the radiu s. The shaft of the humerus is intact. XR/[place] [id number] Impression: 1. Negative right arm and humerus. 2. Fracture of proximal third of right radius.
[2023-08-02 15:44] VITALS: PULSE 65; O2SAT 98
[2023-08-02 16:27] VITALS: BP 159/85; PULSE 56; O2SAT 97
== END 2023-08-02 17:03 | disposition home or self-care (01) ==
PROVIDERS: Emergency Provider Family Medicine; PCP Nurse Practitioner Family
DX: S52.301A Unspecified fracture of shaft of right radius, initial encounter for closed fracture (principal); S52.201A Unspecified fracture of shaft of right ulna, initial encounter for closed fracture; W18.30XA Fall on same level, unspecified, initial encounter; Y92.199 Unspecified place in other specified residential institution as the place of occurrence of the external cause
CPT/HCPCS: 73030; 73060; 73090; 99283

== ENCOUNTER → 2023-08-03 11:02 | Outpatient (BNVA) | payer MEDICAID, SELFPAY | PROVIDERS: PCP Nurse Practitioner Family; Referring Provider Family Medicine; Visit Provider Specialist | DX: S52.301A Unspecified fracture of shaft of right radius, initial encounter for closed fracture (principal); S52.201A Unspecified fracture of shaft of right ulna, initial encounter for closed fracture; T14.8XXA Other injury of unspecified body region, initial encounter; X58.XXXA Exposure to other specified factors, initial encounter | CPT/HCPCS: 73090 ==

== ENCOUNTER 2023-08-07 08:42 | Day surgery (SDC) | payer MEDICAID, SELFPAY ==
[2023-08-07] VITALS (16 sets, daily range): BP systolic 136–161; BP diastolic 84–106; PULSE 58–100; RESP 12–17; TEMP 36.4–37; O2SAT 90–100; BMI 30.8
[2023-08-07] MEDS: sodium chloride 0.9% 1,000 ML 30 ML IV (09:26)
[2023-08-07] MEDS: CELEcoxib 200 mg Capsule 400 MG PO (09:26)
[2023-08-07] MEDS: acetaminophen 1,000 MG/100 ML PIGGYBACK 400 MG IV (09:26)
--- NOTE | 2023-08-07 10:50 | W.PM.OPSUD ---
Surgery/Procedure H&P Update DATE OF PROCEDURE: August 07, 2023 DATE H&P PERFORMED: 08/03/23 H&P UPDATE INFORMATION: I have reviewed H&P completed within last 30 days, I have examined patient prior to procedure, No changes to prior documentation and H&P is in [facility] EMR on date indicated PLANNED PROCEDURE: Operation Date: 08/07/23 10:40 Proposed Procedures p ORIF Wrist Radius and Ulna Fractures(Right) - Mariam Mckeon MD Related Problem List Diagnoses (1) Fracture of radial shaft, with ulna, right, closed: Qualifiers: Encounter type: initial encounter Qualified Code(s): S52.301A - Unspecified fracture of shaft of right radius, initial encounter for closed fracture; S52.201A - Unspecified fracture of shaft of right ulna, initial encounter for closed fracture
[2023-08-07] MEDS: midazolam 1 mg/mL INJ 2 mL 2 MG IVP (11:35)
--- NOTE | 2023-08-07 11:49 | ANES.PREANE2 ---
Pre-Anesthetic Assessment Height/Weight: Height 1.75 m Weight 94.801 kg Temp Pulse Resp BP Pulse Ox O2 Del Method 97.6 F 58 L 17 138/100 100 Room Air 08/07/23 09:08 08/07/23 09:08 08/07/23 09:08 08/07/23 09:08 08/07/23 09:08 08/07/23 09:08 Operation Date: 08/07/23 10:40 Proposed Procedures p ORIF Wrist Radius and Ulna Fractures(Right) - Mariam Mckeon MD Familial anesthetic complications: None Was Beta Quang taken within 24 hours: N/A Was Clonidine taken within 24 hours: N/A Last intake: Intake Last Liquid Date 08/06/23 Last Liquid Time 20:00 Last Solid Date 08/06/23 Last Solid Time 20:00 Social No alcohol and No tobacco Exam alert, oriented x 3, clear to auscultation bilaterally and regular rate & rhythm Airway Mallampati: Class IV Dentition: full Metabolic Hyperlipidemia Anesthetic Plan ASA status: 2 Anesthesia: General and Regional (specify below) Risk of > 500 ml blood loss (7ml/kg in children): No Medications/Allergies Home Medications Medication Instructions Recorded Confirmed Last Taken Type Fiber-Caps (psyllium husk) 625 mg PO DAILY 01/01/20 08/06/23 08/06/23 History cetirizine 10 mg PO DAILY 01/01/20 08/06/23 08/06/23 History ibuprofen 400 mg tablet 400 mg PO TID PRN Fever Or Pain 01/01/20 08/07/23 08/03/23 History desmopressin 0.2 mg tablet 0.2 mg PO .nightly #30 tabs 05/13/20 08/06/23 08/06/23 Rx fluticasone propionate 50 1 spray intranasal DAILY 08/19/20 08/06/23 08/06/23 History mcg/actuation nasal spray,suspension (Children's Flonase Allergy Relief) guanfacine 1 mg tablet 1 mg PO TID #90 tabs 07/17/23 08/06/23 08/07/23 Rx olanzapine 5 mg tablet 5 mg PO .HS #30 tabs 07/30/23 08/06/23 08/06/23 Rx hydrocodone 5 mg-acetaminophen 325 1 tab PO Q6H PRN pain #15 tabs 08/02/23 08/07/23 08/07/23 Rx mg tablet rosuvastatin 10 mg tablet 10 mg PO DAILY 08/06/23 08/06/23 08/06/23 History Allergies Allergy/AdvReac Type Severity Reaction Status Date / Time divalproex sodium Allergy Intermediate ADR-Vomitin Verified 08/03/23 11:13 [From Depakote] g poison isi extract Allergy Intermediate Itching Verified 08/03/23 11:13 poison sumac extract Allergy Mild Unknown Verified 08/03/23 11:13 Current Medications Generic Name Dose Route Start Last Admin Trade Name Freq PRN Reason Stop Dose Admin Sodium Chloride 1,000 mls @ 30 mls/hr 08/07/23 09:00 08/07/23 09:26 Sodium Chloride 0.9% IV 08/08/23 08:59 30 mls/hr .Q24H HARLEY Administration Midazolam HCl 2 mg 08/07/23 08:50 08/07/23 11:35 Midazolam 1 Mg/Ml Inj 2 Ml IVP 2 mg ONCE PRN Administration Preop Anxiety PFSH Anesthesia Medical History Psychiatric care Social History Smoking and tobacco/nicotine status: never used tobacco/nicotine Second hand smoke exposure: No Alcohol intake: never Substance/Drug Use: never Current gender identity: Male Data Anesthesia Cardiac Studies: No Data to Display
--- NOTE | 2023-08-07 11:50 | ANES.PROC ---
Anesthesia Procedures Procedure/Date: 08/07/23 Nerve Block ^: Nerve Block 1: Main Anesthesia: general anesthesia Time Out Performed: Yes Consent: requested by attending/covering physician, from patient, from other, risks and benefits reviewed and patient agrees to proceed Nerve block location: axillary (R) Anesthesia monitors applied: pulse oximetry, EKG, BP cuff and oxygen Nerve block position: supine Anesthetic Used: ropivicaine 0.5% (30 ml) and with decadron (4 mg) Ultrasound used to: recognize landmarks and visualize and ID brachial plexus Nerve Stimulator Used?: No Interscalene/Femoral BLK: 2 stimuplex 22 g needle used for position and inplane approach, visualize local anesthetic spread and no vascular puncture identified Injection: neg aspiration of heme Patient Tolerated Procedure: well Complications: none
[2023-08-07] MEDS: ceFAZolin 2,000 MG in sodium chloride 0.9% (plus) 50 ML 100 MG IV (13:19)
[2023-08-07] MEDS: ceFAZolin 1,000 mg SDV 1000 MG IRRIGATION (14:06)
[2023-08-07] MEDS: vancomycin 1,000 MG SDV 1000 MG XX (14:55)
--- NOTE | 2023-08-07 16:41 | XRR_ITS ---
PROCEDURE INFORMATION: Exam: XR Right Forearm Exam date and time: 08/07/2023 4:51 PM Age: 23 years old Clinical indication: Device placement; Prior surgery; Surgery date: Post-operative (0-2 days); Surgery type: Status post orif TECHNIQUE: Imaging protocol: Radiologic exam of the right forearm. Views: 2 views. COMPARISON: No relevant prior studies available. FINDINGS: Bones/joints: Metallic plates and screws transfix healing fractures of the radial and ulnar diaphyses. Bony alignment is normal. Soft tissues: Normal. XR/XR forearm RT 2V [id number] IMPRESSION: Stable healing fractures of the radius and ulna
--- NOTE | 2023-08-07 16:42 | PM.OP ---
Operative Report Date of procedure: August 07, 2023 Pre-op diagnosis: Right both bone forearm fracture Post-op diagnosis: Right both bone forearm fracture Post-op findings: Comminuted both bone forearm fracture right Procedure done: Open reduction internal fixation right both bone forearm fracture Implants: Barber 7 hole 3.5 mm standard plates x 2 Specimens removed/disposition: None Surgeon: Mariam Mckeon MD Manager Plumbing: [facility] operating room technicians Anesthesia: General (Per LMA, ASA 2) Estimated blood loss (mL): 50 Tourniquet time (min): 0 (Not utilized) IV fluids (mL): 1,000 Urine output (mL): 0 (No Rosas) Complications: None Findings: Comminution of the radius fracture with both bone forearm fracture right Condition: stable Disposition: PACU (Then discharge to same-day surgery for discharge to home) Brief History: This 23-year-old gentleman lives in a [place] [facility] and 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 He noted that he tripped and fell landing on his outstretched arm. He presented to the emergency room with obvious deformity. He was splinted and seen in the office and scheduled for the above surgery. Risks and complications were discussed with his caregiver. Consents were signed by the guardian appointed by the [facility]. Questions were answered. Procedure: Patient was brought to the operating theater, and after undergoing adequate general anesthesia, per LMA, ASA 2, the patient's right upper extremity was prepped and draped in usual fashion utilizing DuraPrep.? The patient had a tourniquet placed high on the arm prior to prepping and draping.?The tourniquet was not elevated during the procedure. Prior to commencement of the surgical procedure, a surgical pause was performed.? At the time of the surgical pause, we confirmed the site and side of surgery as well as the patient's identity and preoperative surgical markings.? We also confirmed availability of equipment and appropriate preoperative IV antibiotics which was Ancef 2 g.? Fluoroscopy was also brought into position so that we could visualize the fracture and hardware throughout the surgical procedure.? The fracture was evaluated prior to tourniquet placement. Following the surgical pause, the appropriate plate was chosen for both the fracture of the radius and ulna. The skin was marked for appropriate incision length and location. An anterior approach was used for the radius fracture which was addressed first. Dissection continued through skin and soft tissues using a scalpel hemostasis was obtained using electrocautery. Care was taken to protect neurovascular structures. We were able to dissect down onto the bone, and the fracture had done some of the resection for us. The fracture was noted to be significantly shortened, angulated, and comminuted. The plate was then placed in appropriate position with position being checked under fluoroscopy. The plate was then attached with standard technique using nonlocking screws. Once the radius had been addressed, it was copiously irrigated. Closure was accomplished with 2-0 Monocryl in the subcutaneous tissues, and the skin was closed with a running 3-0 STRATAFIX. Attention was then directed to the ulnar aspect of the forearm. Once again fluoroscopy was used to determine appropriate position for the incision which was placed along the subcutaneous border of the ulna. The dissection continued proximally and distally as necessary to allow plate placement. Secondary to the position of the fracture, a 7-hole plate was chosen with 3 holes distally, 1 over the comminuted fracture site, and 3 proximally. Fracture reduction was once again difficult secondary to the size of the patient's arm. We were able to reduce the fracture essentially anatomically however. The plate was placed in position over the fracture and attached once again using standard techniques. Again, locking screws were utilized. The wound was irrigated and closure was accomplished with 2-0 Monocryl in subcutaneous tissues and the skin was closed with a running 3-0 STRATAFIX as well. Following subcuticular closure, wounds were further closed with Dermabond Prineo, OpSite, fluffed fluffs, sterile soft roll, and an Lazaro wrap. There were no specimens obtained. There were no complications. The procedure was well-tolerated. The patient will return to the floor for subsequent discharge to home. Related Problem List Diagnoses (1) Fracture of radial shaft, with ulna, right, closed:
[2023-08-07] MEDS: ondansetron 2 mg/ML SDV 2 mL 4 MG IVP (18:01)
[2023-08-07] MEDS: scopolamine 1.5 Patch 1 PATCH TRANSDERMA (18:02)
--- NOTE | 2023-08-07 18:25 | ANE.PACU2 ---
Inpatient post-anesthesia follow up: Airway intact: Yes Vital signs: Temperature 98.0 F Pulse Rate 90 Respiratory Rate 17 Blood Pressure 152/106 Pulse Oximetry 94 Oxygen Delivery Me thod Room Air Oxygen Flow Rate 6 Fraction of Inspir ed Oxygen Hydration adequate: Yes Nausea and vomiting: No Pain level: 1 Mental status: Baseline
== END 2023-08-07 18:23 | disposition home or self-care (01) ==
PROVIDERS: PCP Nurse Practitioner Family; Visit Provider Specialist
PROC: (CPT 25575; principal; 2023-08-07 10:30)
DX: S52.351A Displaced comminuted fracture of shaft of radius, right arm, initial encounter for closed fracture (principal); S52.251A Displaced comminuted fracture of shaft of ulna, right arm, initial encounter for closed fracture
CPT/HCPCS: 25575; 73090; 76000; C1713; J0131; J0690; J1100; J1170; J1200; J2250; J2405; J2704; J2795; J3010; J3370; J7030

== ENCOUNTER 2023-08-27 06:00 | Outpatient (CLI) | payer MEDICAID, SELFPAY | END 2023-08-27 23:59 | disposition home or self-care (01) | LOC: SPT 09-06 09:57 | PROVIDERS: PCP Nurse Practitioner Family; Visit Provider Specialist | DX: Z46.89 Encounter for fitting and adjustment of other specified devices (principal); S52.301D Unspecified fracture of shaft of right radius, subsequent encounter for closed fracture with routine healing; X58.XXXD Exposure to other specified factors, subsequent encounter | CPT/HCPCS: L3984 ==

== ENCOUNTER → 2023-08-27 09:31 | Outpatient (BNVA) | payer MEDICAID, SELFPAY | PROVIDERS: PCP Nurse Practitioner Family; Visit Provider Specialist | DX: S52.201D Unspecified fracture of shaft of right ulna, subsequent encounter for closed fracture with routine healing; S52.301D Unspecified fracture of shaft of right radius, subsequent encounter for closed fracture with routine healing; X58.XXXD Exposure to other specified factors, subsequent encounter | CPT/HCPCS: 73090 ==

== ENCOUNTER → 2023-09-12 10:39 | Outpatient (BNVA) | payer MEDICAID, SELFPAY | PROVIDERS: PCP Nurse Practitioner Family; Visit Provider Specialist | DX: S52.201D Unspecified fracture of shaft of right ulna, subsequent encounter for closed fracture with routine healing (principal); S52.301D Unspecified fracture of shaft of right radius, subsequent encounter for closed fracture with routine healing; X58.XXXD Exposure to other specified factors, subsequent encounter | CPT/HCPCS: 73090 ==

== ENCOUNTER → 2023-10-03 07:44 | Outpatient (BNVA) | payer MEDICAID, SELFPAY | PROVIDERS: PCP Nurse Practitioner Family; Visit Provider Specialist | DX: S52.201D Unspecified fracture of shaft of right ulna, subsequent encounter for closed fracture with routine healing (principal); S52.301D Unspecified fracture of shaft of right radius, subsequent encounter for closed fracture with routine healing; X58.XXXD Exposure to other specified factors, subsequent encounter | CPT/HCPCS: 73090 ==

== ENCOUNTER → 2024-04-08 12:53 | Outpatient (BNVA) | payer OTHER, SELFPAY | PROVIDERS: PCP Nurse Practitioner Family; Visit Provider Psychiatry & Neurology Psychiatry | DX: F63.9 Impulse disorder, unspecified (principal); F84.0 Autistic disorder; Z79.899 Other long term (current) drug therapy | CPT/HCPCS: 80053; 80061; 83036; 84443; 85025 ==